=== PATIENT | male | born 1975 | race Caucasian/White ===

== ENCOUNTER 2019-04-11 18:23 | Inpatient (IN) ==
[~2019-04-11 18:23] MED LIST: ETOMIDATE 2 MG/ML 20 ML VIAL IV ONE; ROCURONIUM BROMIDE 10 MG/ML 10 ML VIAL IV ONE
[2019-04-11] MEDS ORDERED: SODIUM CHLORIDE 0.9% 1000ML 1,000 ML IV SCH (18:45)
[2019-04-11 18:47] LABS: Basophils # (auto) 0.05 K/uL (0-0.2); Basophils % (auto) 0.3 %; Eosinophils # (auto) 0.09 K/uL (0-0.5); Eosinophils % (auto) 0.6 %; Hematocrit (blood only) 47.3 % (42-52); Immature Granulocytes # (auto) 0.05 K/uL (0.00-0.02); Immature Granulocytes % (auto) 0.3 %; Lymphocytes # (auto) 3.17 K/uL (1.2-3.4); Lymphocytes % (auto) 21.8 %; Mean Corpuscular Hgb Conc 35.9 g/dL (32-36); Mean Corpuscular Volume 88.2 fL (80-100); Monocytes # (auto) 0.87 K/uL (0.11-0.59); Neutrophils # (auto) 10.28 K/uL (1.4-6.5); Platelet Count 199 K/uL (130-400); RDW Coefficient of Variation 12.3 % (11.5-14.5); Red Blood Count 5.36 M/uL (4.7-6.1); White Blood Count 14.51 K/uL (4.8-10.8)
[2019-04-11 18:55] LABS: iSTAT Creatinine 1.2 mg/dl (0.6-1.3); iSTAT Ionized Calcium 1.12 mmol/l (1.12-1.32); iSTAT Potassium 3.6 mEq/L (3.3-5.0)
[2019-04-11 19:03] LABS: Alanine Aminotransferase 36 U/L (12-78); Albumin Level 4.1 gm/dl (3.4-5.0); Aspartate Aminotransferase 20 U/L (15-37); BUN Creatinine Ratio 12.6 (10-20); Blood Urea Nitrogen 17 mg/dl (7-18); Calcium 8.5 mg/dl (8.5-10.1); Carbon Dioxide 28 mmol/L (21-32); Chloride 107 mmol/L (98-107); Est GFR (African American) 44.9; Est GFR (Non-African American) 38.7; Glucose 134 mg/dl (70-99); Potassium 3.6 mmol/L (3.5-5.1); Prothrombin Time 9.9 Seconds (9.0-12.0); Sodium 142 mmol/L (136-145)
[2019-04-11 19:12] LABS: Acetaminophen < 2 ug/ml (10-30)
[2019-04-11 19:13] LABS: Salicylate < 1.7 mg/dl (2.8-20)
[2019-04-11 19:14] LABS: Alkaline Phosphatase 128 U/L (45-117); Bilirubin,Total 0.6 mg/dl (0.2-1); Globulin 4.1 gm/dl (2.5-4.0); Total Protein 8.2 gm/dl (6.4-8.2); Troponin I < 0.015 ng/ml (0-0.045)
--- NOTE | 2019-04-11 19:18 | XRay Report ---
XR chest 1V portable CLINICAL HISTORY: Possible foreign body ingestion COMPARISON STUDY: No previous studies for comparison. FINDINGS: The cardiac and mediastinal contours are normal. There is no evidence of focal pulmonary co nsolidation. There is no evidence of failure. No pleural effusions are visualized.[ IMPRESSION: No active disease in the chest. Electronically signed by: Bebeto Granda M.D. 04/11/2019 7:17 PM
--- NOTE | 2019-04-11 19:19 | XRay Report ---
XR KUB/Abdomen 1 view CLINICAL HISTORY: Possible foreign body ingestion COMPARISON STUDY: No previous studies for comparison. FINDINGS: There is no pathologic bowel dilatation. No foreign bodies are visualized. There are no justin cifications suspicious for urinary tract calculi. IMPRESSION: Normal bowel gas pattern. Electronically signed by: Bebeto Granda M.D. 04/11/2019 7:17 PM
[2019-04-11] MEDS ORDERED: LORazepam 1 MG/2 ML VIAL IV STA (19:23)
[2019-04-11] MEDS ORDERED: LORazepam 2 MG/4 ML VIAL IV PRN (19:36)
[2019-04-11] MEDS ORDERED: LORazepam 1 ML IM STA ×2 (19:59)
[2019-04-11] MEDS ORDERED: MULTI-VITAMIN INFUSION 10 ML, THIAMINE HCL 100 MG, FOLIC ACID 1 MG in SODIUM CHLORIDE 0... IV SCH (20:00)
[2019-04-11] MEDS ORDERED: LORazepam 2 MG/4 ML VIAL IV STA ×4 (20:08→20:19)
[2019-04-11] MEDS ORDERED: RAPID SEQUENCE INDUCTION BAG ONE (20:30)
[2019-04-11] MEDS ORDERED: PROPOFOL IV EMULSION 10 MG/ML 100 ML VIAL IV ONE (20:44)
[2019-04-11] MEDS ORDERED: PROPOFOL 1,000 MG/100 ML VIAL IV STA (20:59)
[2019-04-11] MEDS ORDERED: ETOMIDATE 2 MG/ML 20 ML VIAL IV STA (20:59)
[2019-04-11] MEDS ORDERED: ROCURONIUM BROMIDE 10 MG/ML 5 ML VIAL IV STA (21:00)
--- NOTE | 2019-04-11 21:10 | XRay Report ---
XR chest 1V portable CLINICAL HISTORY: post intubation RESPIRATORY FAILURE COMPARISON STUDY: 04/11/2019 FINDINGS: There is been interval placement of an endotracheal tube 2 mm above the jarret. There is mi ld interstitial prominence which is likely secondary to expiratory film. There is no lobar consolidat ion. There are no pleural effusions.[ IMPRESSION: Interval placement of an endotracheal tube 2 mm above the jarret. Electronically signed by: Bebeto Granda M.D. 04/11/2019 9:08 PM
--- NOTE | 2019-04-11 21:31 | CT Scan Report ---
CT head/brain wo con CLINICAL HISTORY: Acute change in mental status. Possible drug overdose. COMPARISON STUDY: No previous studies for comparison. TECHNIQUE: Axial CT of the brain is performed from the vertex to the skull base. IV contrast was not administered for this examination. A dose lowering technique was utilized adhering to the principles of ALARA. CT DOSE: 1927.80 mGy.cm FINDINGS: No intra or extra-axial mass lesions are visualized. There is no CT evidence of acute cortical infarc tion. There is no evidence of midline shift. There is no acute hemorrhage. No calvarial fractures ar e visualized. There is no evidence of pathologic ventricular dilatation. There is minimal right frontal sinus mucosal thickening. IMPRESSION: No acute intracranial findings Electronically signed by: Bebeto Granda M.D. 04/11/2019 9:29 PM
--- NOTE | 2019-04-11 21:33 | CT Scan Report ---
CT abd pelvis IV con only CLINICAL HISTORY: Generalized abdominal pain COMPARISON STUDY: None. TECHNIQUE: The patient was scanned in a dynamic helical fashion during intravenous administration of 93 cc of Optiray 320 A dose lowering technique was utilized adhering to the principles of ALARA. CT DOSE: FINDINGS: Lower chest: There is bilateral lower lobe atelectasis/consolidation. Liver: The contrast-enhanced liver is normal in size, contour, and attenuation. There is no intrahepa tic biliary ductal dilatation. The hepatic veins and portal veins are patent. Gallbladder: Unremarkable. Spleen: Normal in size and attenuation. Pancreas: Unremarkable. Adrenal glands: Unremarkable. Kidneys: There is symmetric renal cortical enhancement. The kidneys are normal in size without hydron ephrosis. Bowel: There are no transition zones indicate bowel obstruction. The appendix appears normal. There i s no evidence of acute diverticulitis. Peritoneum: There is no intraperitoneal free air or abdominal ascites. Vasculature: The abdominal aorta is normal in course and caliber. Adenopathy: None. Pelvic viscera: There is a joint Wong catheter. Skeletal structures: No destructive osseous lesions are seen. IMPRESSION: 1. No acute intra-abdominal or pelvic findings 2. No evidence of bowel obstruction. No evidence of free air 3. Normal appendix. No evidence of acute diverticulitis 4. Extensive bilateral lower lobe atelectasis/consolidation Electronically signed by: Bebeto Granda M.D. 04/11/2019 9:32 PM
[2019-04-11] MEDS ORDERED: ICU PROTOCOL FOR HYPERGLYCEMIA PRN (21:37)
--- NOTE | 2019-04-11 21:37 | History & Physical Report ---
Date of Service April 11, 2019 Assessment & Plan (1) Altered mental status: Patient will be admitted to the ICU. Patient is intubated for airway protection. Patient likely overdosed on roney. will continue IV sedation and paralytics. Empiric phenobarbital for presumptive alcohol withdrawal consulted and discussed with habilitation worker. (2) Recreational drug use: Roney use-methamphetamine use likely and MDMA -Treatment as above (3) Tachycardia: Likely secondary to methamphetamine use as well as likely alcohol withdrawal -Avoid beta-blockers -Treating with phenobarbital for alcohol withdrawal (4) DTs (delirium tremens): As above -Phenobarbital (5) Respiratory failure: Secondary to drug intoxication and alcohol withdrawal, -Currently intubated -Continue supplemental O2 to keep pulse ox greater than 90% (6) Drug overdose, intentional: As above (7) HTN (hypertension): Has a history of borderline hypertension but is not on any medication Here severely hypertensive likely secondary to drug use and withdrawal as above (8) History of gonorrhea: Reportedly with history of gonorrhea-unclear if has been treated -Studies pending here (9) Rhabdomyolysis: CPK elevated at 3045 -Likely secondary to drug use and severe agitation -Continue IV fluids -Follow CPK in the morning (10) Leukocytosis: Leukocytosis of 14 on admission -No evidence of infection CT of the head negative, CT of abdomen pelvis negative Chest x-ray negative for pneumonia Urinalysis without evidence of infection -Follow CBC (11) Methamphetamine use: As above (12) DVT prophylaxis: SCDs Pepcid twice daily Lovenox SQ History of Present Illness Primary Care Provider: NO PCP Patient is currently intubated. Unable to obtain medical records at this time. Patient is a young -Citizen Of [place] male who is currently intubated. It appears patient does not have significant past medical history except for Gonorrhea. Patient appears to have some interaction with law enforcement and was intoxicated. EMS was called as he was agitatd, placed on versed and sent to the ER. He became more agitated and began showing signs of respiratory distress whcih caused him to be sedated and intubated. Admision was then called. Allergies Allergy/AdvReac Type Severity Reaction Status Date / Time Penicillins Allergy Unknown Verified 04/11/19 18:38 tomato Allergy Hives Verified 04/13/19 12:02 Home Medications Home Medications Medication Instructions Recorded Confirmed Type Unobtainable 04/11/19 04/11/19 History Past Med/Surg History Medical History HTN (hypertension) (Acute) History of gonorrhea Social History Communication Ability: Unable Current Living Situation: Alone Current Living Situation Comment: Unable to assess - patient intubated and sedated Smoking Status: Unknown if ever smoked Hx Alcohol Use: Yes Alcohol type: other Hx Substance Use: Yes ("Roney") substance use type: methamphetamine Substance Use Type Other:: Unable to assess - patient intubated and sedated Review of Systems Review of Systems: Unobtainable due to endotracheal tube Physical Exam Physical Exam: General: aemrican male who is sedated and intubated. Neurological: RASS score: 4, Psychological: sedated, not following complex commands Eyes: Pupils are equal, round and reactive to light, anicteric sclera. HEENT: MMM, Oropharynx obscured by endotracheal tube. Neck: Supple. Symmetric. trachea midline. No thyromegaly. Cardiovascular: Normal peripheral perfusion. Distal pulses and capillary refill intact. No JVD. Tachycardia Respiratory: Respirations are non-labored, no accessory muscle use. Breath sounds are equal. Gastrointestinal: Soft. Non-distended. Lymphatic: No cervical lymphadenopathy. Musculoskeletal: No deformity. No clubbing nor cyanosis Results & Data Vital Signs (Past 12 Hours) Vital Signs Temp Pulse Resp BP Pulse Ox 04/11/19 21:32 143 H 16 96 04/11/19 20:54 171 H 24 93 04/11/19 20:31 176 H 144/127 H 93 04/11/19 20:30 176 H 93 04/11/19 20:26 176 H 157/123 H 93 04/11/19 20:01 174 H 117/94 91 04/11/19 19:49 169 H 132/87 94 04/11/19 19:30 180 H 132/87 93 04/11/19 19:00 113 H 18 186/104 H 93 04/11/19 18:38 106 H 199/114 H 93 04/11/19 18:30 37.1 C 101 H 18 185/105 H 92 Critical Care Time Critical Care Time: Yes Total Critical Care Time: 32 PG Care Time/CCT Total # of Minutes Spent Total Time Spent with Patient: Total time spent is greater than 50% in coordination of care (as documented) at patient's floor/unit and/or counseling patient: Critical Care Time: Yes Total Critical Care Time: 32 (1) Altered mental status Altered mental status type: unspecified Qualified Code(s): R41.82 - Altered mental status, unspecified
[2019-04-11 22:08] LABS: Appearance Urine Clear (Clear); Bacteria Urine Automated Negative (Negative); Bilirubin Urine Negative (Negative); Blood Urine Trace (Negative); Color Urine Yellow; Epithelial Cell Urine Auto >30 /lpf (0-5); Glucose Urine UA Negative (Negative); Ketones Urine Negative (Negative); Leukocyte Esterase Urine Negative (Negative); Nitrite Urine Negative (Negative); Protein Urine 1+ (Negative); Specific Gravity Urine > 1.045 (1.000-1.030); Urobilinogen Urine Negative (Negative)
--- NOTE | 2019-04-11 22:13 | XRay Report ---
XR chest 1V portable CLINICAL HISTORY: OG tube placement OVERDOSE COMPARISON STUDY: 04/11/2019 FINDINGS: The prior endotracheal tube is not visualized. There is an enteric tube positioned within t he stomach. There is evidence of renal collecting system opacification. IMPRESSION: 1. The recently placed enteric tube is positioned with its tip in the stomach 2. The endotracheal tube is not visualized on the current study Electronically signed by: Bebeto Granda M.D. 04/11/2019 10:12 PM
--- NOTE | 2019-04-11 22:15 | Critical Care Consultation ---
Date of Consultation April 11, 2019 Assessment & Plan (1) Acute metabolic encephalopathy: Reason Critically Ill: Middle-aged -Italian male requiring intubation secondary to acute encephalopathy PLAN: Neuro: Acute encephalopathy -Likely metabolic secondary to recreational drug use versus recreational drug withdrawal -Empiric phenobarbital for presumptive alcohol withdrawal Resp: Acute respiratory failure -Wean ventilator as tolerated CV: Tachycardia -Avoiding beta-blockers secondary to reported "roney" use -Reported roney has high probability of being methamphetamine -Aggressive hydration Fluids/Renal: Checking CPK rule out rhabdomyolysis ID: Monitor fever curve GI/Nutrition: No evidence of transaminitis N.p.o. -OG tube to low intermittent suction Heme: Lovenox DVT prophylaxis Endocrine: ICU hyperglycemia protocol Vascular access: Peripheral IVs Code Status: Full I have personally spent 40 minutes of critical care time in the direct management of this patient. This is a life/limb threatening event. This includes time spent evaluating patient, direct bedside care, chart review, placing orders, interpretation of diagnostic studies, discussion with consultants, patient, and/or family members regarding treatment decisions, as well as other required patient management activities. This time is exclusive of all separately billable procedures, and teaching time and separate from and in addition to any other critical care service time. (2) Drug overdose, intentional: (3) Incarceration: (4) Recreational drug use: (5) Recreational drug withdrawal: (6) Tachycardia: History of Present Illness Reason for Consultation: Intentional drug overdose Requesting Physician: Petra present Attending Physician: Ganesh Payan History of Present Illness Patient is intubated sedated history comes from prior records, Emergency department physician report. Patient is a young -Italian male with reportedly no significant past medical history who presents after being placed in a holding cell after some interaction with law enforcement requiring incarceration, the patient became agitated EMS was called got 5 mg of Versed and was brought to the emergency room for further evaluation. Patient reported taking mollies daily and then experienced increasing agitation and tremulousness requiring multiple doses of Ativan. Upon extensive further questioning after reportedly initially denied reports that he drinks alcohol daily. Ultimately the patient became acutely encephalopathic and required intubation for airway protection and facilitation of medical work-up. Allergies Allergy/AdvReac Type Severity Reaction Status Date / Time Penicillins Allergy Unknown Verified 04/11/19 18:38 Home Medications Home Medications Medication Instructions Recorded Confirmed Type Unobtainable 04/11/19 04/11/19 History Patient History Medical History HTN (hypertension) History of gonorrhea Social History Smoking Status: Unknown if ever smoked Review of Systems Review of Systems: All systems reviewed & are unremarkable except as noted in HPI & below Physical Exam Physical Exam: General: Middle-aged male who appears his stated age, well- nourished I have reviewed the recorded vital signs Neurological: RASS score: 4, Psychological: 3 TP not following complex commands Eyes: Pupils are equal, round and reactive to light, anicteric sclera. Symmetrical lids. HENT: Oropharynx obscured by endotracheal tube, mucous membranes moist. Neck: Supple. Symmetric. trachea midline. No thyromegaly. Cardiovascular: Normal peripheral perfusion. Distal pulses and capillary refill intact. No JVD. Tachycardia Respiratory: Respirations are non-labored, no accessory muscle use. Breath sounds are equal. Gastrointestinal: Soft. Non-distended. Lymphatic: No cervical lymphadenopathy. Musculoskeletal: No deformity. No clubbing nor cyanosis. Results & Data Vital Signs (Past 12 Hours) Vital Signs Temp Pulse Resp BP Pulse Ox 04/11/19 21:32 143 H 16 96 04/11/19 21:30 143 H 153/85 H 95 04/11/19 21:00 160 H 158/93 H 95 04/11/19 20:54 171 H 24 93 04/11/19 20:45 175 H 175/97 H 93 04/11/19 20:31 176 H 144/127 H 93 04/11/19 20:30 176 H 93 04/11/19 20:26 176 H 157/123 H 93 04/11/19 20:01 174 H 117/94 91 04/11/19 19:49 169 H 132/87 94 04/11/19 19:30 180 H 132/87 93 04/11/19 19:00 113 H 18 186/104 H 93 04/11/19 18:38 106 H 199/114 H 93 04/11/19 18:30 37.1 C 101 H 18 185/105 H 92 PG Care Time/CCT Total # of Minutes Spent Total Time Spent with Patient: Total time spent is greater than 50% in coordination of care (as documented) at patient's floor/unit and/or counseling patient: Critical Care Time: Yes Total Critical Care Time: 40
[2019-04-11 22:19] LABS: Mucus Urine Present (None Prsent)
[2019-04-11 22:32] LABS: Amphetamines+Metham, Urine Pos (Neg); Barbiturates, Urine Pos (Neg); Benzodiazepine, Urine Pos (Neg); Cocaine, Urine Neg (Neg); MDMA (Ecstacy), Urine Pos (Neg); Methadone, Urine Neg (Neg); Opiate, Urine Neg (Neg); Phencyclidine, Urine Neg (Neg)
[2019-04-11] MEDS: PROPOFOL 1,000 MG/100 ML VIAL IV SCH ×2 (22:35→23:49)
--- NOTE | 2019-04-12 01:09 | Emergency Department Note ---
Entered by Moriah Loredo acting as a scribe for ThaPetraluis f Petersen DO History of Present Illness General Chief complaint: Overdose (Intentional) Time Seen by Provider: 04/11/19 18:25 Source: patient, EMS and police Mode of arrival: EMS History of Present Illness Onset (ago): hour(s) (1.5) Location: head (Overdose) Severity: similar to prior episodes Pain Consistency: + other (Episode) Quality: + other (Overdose) Relieved By: + medication (Versed) Exacerbated By: + other (Farrah) Associated symptoms: + diaphoresis and + other (Non-verbal.); no chest pain and no headaches Treatments prior to arrival: other (Versed) The patient is a male whose age is unknown presents to the Emergency Department via EMS complaining of an episode of an overdose starting 1.5 hours ago. EMS reports that the patient was arrested by police about 1.5 hours ago. They state that while in his halfway cell the police noticed the patients mental status deteriorated. They explain that upon their arrival the patient was extremely diaphoretic and awake but non-verbal. They note that [employer] the patient resisted coming into the hospital while in the ambulance. They add that they gave the patient Versed 5 mg IM [employer] that seemed to help the patient calm down. The police who are at the patients bedside report that the patient was picked up from [place], [place]. They state that the patient may have swallowed something while he was in the bathroom at their facility because he spent a long time in the bathroom. They explains that the patient was stripped searched and that nothing was found. They note that when the patient arrived at their facility his mental status was normal and that he was answering questions normally. They add that the patient was arrested 2 nights ago and provided a false name to authorities. The patient reports that he was in the ward and took a tablet of Farrah. He states that he has taken Farrah before. He notes that he currently has gonorrhea and hypertension that he does not take medication for. He denies cocaine, heroin and marijuana use. He denies chest pain and headache. The HPI and ROS are limited due to AMS. Home Medications Home Medications Medication Instructions Recorded Confirmed Type Unobtainable 04/11/19 04/11/19 History Allergies Allergy/AdvReac Type Severity Reaction Status Date / Time Penicillins Allergy Unknown Verified 04/11/19 18:38 Past Med/Surg History Medical History HTN (hypertension) History of gonorrhea Social History Communication Ability: Unable Current Living Situation: Alone Current Living Situation Comment: Unable to assess - patient intubated and sedated Smoking Status: Unknown if ever smoked Hx Alcohol Use: Yes Alcohol type: other Hx Substance Use: Yes ("Farrah") substance use type: methamphetamine Substance Use Type Other:: Unable to assess - patient intubated and sedated Review of Systems The HPI and ROS are limited due to AMS. Physical Exam Vital Signs Vital Signs - 24 hr 04/11/19 18:30 04/11/19 18:38 04/11/19 19:00 Temperature 37.1 C Temperature Source Oral Sepsis Recent Fever Within 48 Hours No Sepsis New/Unexplained Change in Mental Status No Sepsis Action Taken by Nursing No Action Required End-Tidal CO2 Pulse Rate 101 H 106 H 113 H Pulse Rate from SpO2 Sensor 103 H 112 H Respiratory Rate 18 18 Blood Pressure 185/105 H 199/114 H 186/104 H Blood Pressure Mean 131 142 131 Pulse Oximetry 92 93 93 Oxygen Delivery Method Room Air Oxygen Flow Rate Fraction of Inspired Oxygen 04/11/19 19:30 04/11/19 19:49 04/11/19 20:01 Temperature Temperature Source Sepsis Recent Fever Within 48 Hours Sepsis New/Unexplained Change in Mental Status Sepsis Action Taken by Nursing End-Tidal CO2 Pulse Rate 180 H 169 H 174 H Pulse Rate from SpO2 Sensor 177 H 173 H 174 H Respiratory Rate Blood Pressure 132/87 132/87 117/94 Blood Pressure Mean 102 102 101 Pulse Oximetry 93 94 91 Oxygen Delivery Method Oxygen Flow Rate 2 4 Fraction of Inspired Oxygen 04/11/19 20:26 04/11/19 20:30 04/11/19 20:31 Temperature Temperature Source Sepsis Recent Fever Within 48 Hours Sepsis New/Unexplained Change in Mental Status Sepsis Action Taken by Nursing End-Tidal CO2 Pulse Rate 176 H 176 H 176 H Pulse Rate from SpO2 Sensor 185 H 174 H 175 H Respiratory Rate Blood Pressure 157/123 H 144/127 H Blood Pressure Mean 134 132 Pulse Oximetry 93 93 93 Oxygen Delivery Method Oxygen Flow Rate Fraction of Inspired Oxygen 04/11/19 20:45 04/11/19 20:54 04/11/19 21:00 Temperature Temperature Source Sepsis Recent Fever Within 48 Hours Sepsis New/Unexplained Change in Mental Status Sepsis Action Taken by Nursing End-Tidal CO2 52 52 Pulse Rate 175 H 171 H 160 H Pulse Rate from SpO2 Sensor 175 H 159 H Respiratory Rate 24 Blood Pressure 175/97 H 158/93 H Blood Pressure Mean 123 114 Pulse Oximetry 93 93 95 Oxygen Delivery Method Oxygen Flow Rate Fraction of Inspired Oxygen 60 04/11/19 21:30 04/11/19 21:32 Temperature Temperature Source Sepsis Recent Fever Within 48 Hours Sepsis New/Unexplained Change in Mental Status Sepsis Action Taken by Nursing End-Tidal CO2 53 46 Pulse Rate 143 H 143 H Pulse Rate from SpO2 Sensor 143 H Respiratory Rate 16 Blood Pressure 153/85 H Blood Pressure Mean 107 Pulse Oximetry 95 96 Oxygen Delivery Method Mechanical Vent Oxygen Flow Rate Fraction of Inspired Oxygen 60 GENERAL: alert, well appearing, well nourished, no distress. EYE EXAM: normal conjunctiva, PERRL and EOM's grossly intact. Dilated pupils b ilaterally. OROPHARYNX: no exudate, no erythema, lips, buccal mucosa, and tongue normal and mucous membranes are moist NECK: supple, no nuchal rigidity, no adenopathy, non-tender LUNGS: Clear to auscultation. Normal chest wall mechanics. No wheezes, rhonchi or rales. HEART: no murmurs, S1 normal and S2 normal ABDOMEN: abdomen soft, non-tender, normo-active bowel sounds, no masses, no rebound or guarding. BACK: Back is symmetrical on inspection and there is no deformity, no midline tenderness, no CVA tenderness. SKIN: no rashes and no bruising UPPER EXTREMITIES: upper extremities are grossly normal. FROM, nml pulses b/l. LOWER EXTREMITIES: No pitting edema. FROM, nml pulses b/l. NEURO EXAM: Patient responds to voice. Eyes open. Will follow simple commands. Slurred speech. Moving all extremities spontaneously. Procedures FAST Exam FAST Exam 1: Fluid in Morison's pouch: No Fluid in Splenorenal Junction: No Fluid around bladder, Transverse view: No Fluid around bladder, Sagittal view: No Fluid in Pericardial Sac: No Gross Wall Motion Abnormality: No Study normal for this patient: Yes Images saved for further review: No Intubation Time out performed: Yes sedative: Etomidate Mg Given: 30 paralytic: Rocuronium Mg Given: 100 Laryngoscope: Viola ET Tube Size: 7.5 ET Tube Uncuffed: No Tube Secured Depth (cm): 25 Tube Secured Location: lips Tube Placement Confirmation: visualized tube passing through cords, equal breath sounds bilaterally, no breath sounds over epigastrium and confirmation by capnometry Patient Tolerated Procedure: well Intubation Complications: none Course 1823: The patient was evaluated in room B1, and a complete history and physical examination were performed. 1850: I reevaluated the patient at this time who is talking more. He reports that he has abdominal pain and has had diarrhea for the past 2 days. He denies any bloody stools. 1919: I reevaluated the patient at this time who is more tachycardic. He is currently trying to urinate. He reports that he normally takes Farrah every day. He states that he is concerned that he has an infection that he got from his dog who has pneumonia. He adds that he does not store drugs in his body. 1934: The nurse reports that she spoke with the patient who said that he normally drinks Nannette every day. She reports that the patient stated he last had an alcoholic drink 1 day ago. 1949: I reevaluated the patient at this time. The patient is more ill-appearing. He is tremulous and tachycardic in the 160s. He confirms that he drinks Nannette every day and that his last drink was 1 day ago. 1999: Bedside FAST exam performed at this time that is negative for free fluid. See procedure note. The patient has had 11 mg of Ativan thus far and is still tachycardic, diaphoretic and tremulous. 2033: I discussed the patients case with Dr. Madrigal. 2042: Etomidate administered at this time. 2043: Rocuronium administered at this time. 2044: I intubated the patient at this time. See procedure note. 2045: The patient was put on a Propofol drip at this time. 2099: CXR reviwed, ETT pulled back 1-2 cm for optimal placement. HR improved but still tachy. BP improved. 2109: I discussed the patient's case with Dr. Gabriella ANDINO hospitalist. He will evaluate the patient for further management. 2132: I reevaluated the patient at this time. The hospitalist is at the patients bedside at this time evaluating the patient. Consultations Consultation #1: I discussed the patients case with Dr. Madrigal. Time: 20:34 Consultation #2: I discussed the patient's case with Dr. Gabriella ANDINO hospitalist. He will evaluate the patient for further management. Time: 21:10 Administered Medications Phenobarbital Sodium 180 mg/ (Syringe) 1.3846 mls @ 0 mls/hr IM Q3H CIERRA Stop: 04/12/19 03:01 Last Admin: 04/11/19 23:44 Dose: 1 mls/hr Documented by: [id number] Propofol (Diprivan) 1,000 mg in 100 mls @ 42.378 mls/hr IV .Q2H22M CIERRA; Protocol Stop: 04/14/19 22:40 Last Admin: 04/11/19 23:49 Dose: 70 mcg/kg/min, 42.4 mls/hr Documented by: [id number] Cosigned by: [id number] Titration: 04/11/19 23:49 Dose: 70 mcg/kg/min, 42.4 mls/hr Documented by: [id number] Cosigned by: [id number] Titration: 04/11/19 23:15 Dose: 70 mcg/kg/min, 42.4 mls/hr Documented by: [id number] Titration: 04/11/19 23:00 Dose: 65 mcg/kg/min, 39.4 mls/hr Documented by: [id number] Admin: 04/11/19 22:35 Dose: 60 mcg/kg/min, 36.3 mls/hr Documented by: [id number] Cosigned by: [id number] Discontinued Medications Etomidate (Amidate) 30 mg IV NOW STA Stop: 04/11/19 21:00 Last Admin: 04/11/19 20:43 Dose: 30 mg Documented by: [id number] Sodium Chloride (Nss 1000ml) 1,000 mls @ 125 mls/hr IV .Q8H CIERRA Stop: 05/11/19 18:44 Last Infusion: 04/11/19 23:37 Dose: 0 mls/hr Documented by: [id number] Admin: 04/11/19 18:48 Dose: 125 mls/hr Documented by: [id number] Lorazepam (Ativan) 1 mg in 2 mls @ 0.5 mls/min IV NOW STA Stop: 04/11/19 19:26 Last Admin: 04/11/19 19:29 Dose: 0.5 mls/min Documented by: [id number] Multivitamins 10 ml/ Thiamine HCl 100 mg/ Folic Acid 1 mg/Sodium Chloride 1,011.2 mls @ 250 mls/hr IV .Q4H3M CIERRA Stop: 04/12/19 00:02 Last Admin: 04/11/19 20:57 Dose: 250 mls/hr Documented by: [id number] Lorazepam (Ativan) 1 mls @ 0.0033 mls/min IM NOW STA Stop: 04/12/19 01:02 Last Admin: 04/11/19 23:36 Dose: Not Given Documented by: [id number] Lorazepam (Ativan) 1 mls @ 0.0033 mls/min IM NOW STA Stop: 04/12/19 01:02 Last Admin: 04/11/19 23:36 Dose: Not Given Documented by: [id number] Lorazepam (Ativan) 2 mg in 4 mls @ 4 mls/min IV NOW STA Stop: 04/11/19 20:09 Last Admin: 04/11/19 20:12 Dose: 4 mls/min Documented by: [id number] Lorazepam (Ativan) 2 mg in 4 mls @ 4 mls/min IV NOW STA Stop: 04/11/19 20:09 Last Admin: 04/11/19 20:12 Dose: 4 mls/min Documented by: [id number] Lorazepam (Ativan) 2 mg in 4 mls @ 4 mls/min IV NOW STA Stop: 04/11/19 20:10 Last Admin: 04/11/19 20:14 Dose: 4 mls/min Documented by: [id number] Lorazepam (Ativan) 2 mg in 4 mls @ 4 mls/min IV NOW STA Stop: 04/11/19 20:20 Last Admin: 04/11/19 20:24 Dose: 4 mls/min Documented by: [id number] Phenobarbital Sodium 240 mg/ (Syringe) 3.6923 mls @ 1 mls/min IV NOW STA Stop: 04/11/19 20:51 Last Admin: 04/11/19 20:57 Dose: 1 mls/min Documented by: [id number] Propofol (Diprivan) 1,000 mg in 100 mls @ 15.135 mls/hr IV .Q6H37M STA; Protocol Stop: 04/12/19 03:35 Last Titration: 04/11/19 23:37 Dose: 0 mcg/kg/min, 0 mls/hr Documented by: [id number] Admin: 04/11/19 20:48 Dose: 25 mcg/kg/min, 15.1 mls/hr Documented by: [id number] Cosigned by: [id number] Propofol (Diprivan) Confirm Administered Dose 1,000 mg IV .STK-MED ONE Stop: 04/11/19 20:45 Last Admin: 04/11/19 20:48 Dose: 1,000 mg Documented by: [id number] Cosigned by: [id number] Rocuronium [place] (Zemuron) 100 mg IV NOW STA Stop: 04/11/19 21:01 Last Admin: 04/11/19 20:43 Dose: 100 mg Documented by: [id number] Cosigned by: [id number] Medical Decision Making Differential Diagnosis Differential diagnoses includes but is not limited to toxic, metabolic, infectious, traumatic, cardiac, neurologic, hematologic, psychiatric, inflammatory, toxicological process,hypoglycemia, electrolyte abnormalities, cardiac sources, intracerebral event as well as others were entertained. Medical Records Attestation: I reviewed the patient's medical records. Home Medications Current Medication List: was personally reviewed by me Laboratory Data Attestation: I reviewed the patient's lab results. Result diagrams: 04/11/19 18:33 04/11/19 18:33 Lab Results 04/11/19 04/11/19 04/11/19 Range/Units 18:33 18:33 18:33 WBC 14.51 H (4.8-10.8) K/uL RBC 5.36 (4.7-6.1) M/uL Hgb 17.0 (14.0-18.0) g/dL POC Hgb (14.0-18.0) g/dl Hct 47.3 (42-52) % POC Hct (42-52) % MCV 88.2 (80-100) fL MCH 31.7 (25-34) pg MCHC 35.9 (32-36) g/dL RDW Std Deviation 39.0 (36.4-46.3) fL RDW Coeff of Galo 12.3 (11.5-14.5) % Plt Count 199 (130-400) K/uL MPV 9.0 (7.4-10.4) fL Immature Gran % (Auto) 0.3 % Neut % (Auto) 71.0 % Lymph % (Auto) 21.8 % Cherry % (Auto) 6.0 % Eos % (Auto) 0.6 % Baso % (Auto) 0.3 % Immature Gran # (Auto) 0.05 H (0.00-0.02) K/uL Neut # (Auto) 10.28 H (1.4-6.5) K/uL Lymph # (Auto) 3.17 (1.2-3.4) K/uL Cherry # (Auto) 0.87 H (0.11-0.59) K/uL Eos # (Auto) 0.09 (0-0.5) K/uL Baso # (Auto) 0.05 (0-0.2) K/uL PT 9.9 (9.0-12.0) Seconds INR 1.0 (0.9-1.1) POC Sodium (135-144) mEq/L Sodium 142 (136-145) mmol/L POC Potassium (3.3-5.0) mEq/L Potassium 3.6 (3.5-5.1) mmol/L POC Chloride (101-112) mEq/L Chloride 107 (98-107) mmol/L Carbon Dioxide 28 (21-32) mmol/L POC Total CO2 (24-31) mEq/l Anion Gap 7.0 (3-11) POC Anion Gap (16-25) mmol/L POC BUN (7-18) mg/dl BUN 17 (7-18) mg/dl Creatinine 1.32 (0.6-1.4) mg/dl POC Creatinine (0.6-1.3) mg/dl Est Cr Clr Drug Dosing Not Reportable Est GFR ( Amer) 44.9 Est GFR (Non-Af Amer) 38.7 BUN/Creatinine Ratio 12.6 (10-20) Glucose 134 H (70-99) mg/dl POC Glucose (other) (70-99) mg/dl Calcium 8.5 (8.5-10.1) mg/dl POC Ioniz Calcium Dinora (1.12-1.32) mmol/l Magnesium 2.0 (1.8-2.4) mg/dl Total Bilirubin 0.6 (0.2-1) mg/dl AST 20 (15-37) U/L ALT 36 (12-78) U/L Alkaline Phosphatase 128 H (45-117) U/L Total Creatine Kinase (39-308) U/L Troponin I < 0.015 (0-0.045) ng/ml Total Protein 8.2 (6.4-8.2) gm/dl Albumin 4.1 (3.4-5.0) gm/dl Globulin 4.1 H (2.5-4.0) gm/dl Albumin/Globulin Ratio 1.0 (0.9-2) Lipase 67 L (73-393) U/L TSH 2.890 (0.300-4.500) uIu/ml Salicylates (2.8-20) mg/dl Acetaminophen (10-30) ug/ml Ethyl Alcohol mg/dL (0-3) mg/dl 04/11/19 04/11/19 04/11/19 Range/Units 18:33 18:33 18:39 WBC (4.8-10.8) K/uL RBC (4.7-6.1) M/uL Hgb (14.0-18.0) g/dL POC Hgb 17.0 (14.0-18.0) g/dl Hct (42-52) % POC Hct 50 (42-52) % MCV (80-100) fL MCH (25-34) pg MCHC (32-36) g/dL RDW Std Deviation (36.4-46.3) fL RDW Coeff of Galo (11.5-14.5) % Plt Count (130-400) K/uL MPV (7.4-10.4) fL Immature Gran % (Auto) % Neut % (Auto) % Lymph % (Auto) % Cherry % (Auto) % Eos % (Auto) % Baso % (Auto) % Immature Gran # (Auto) (0.00-0.02) K/uL Neut # (Auto) (1.4-6.5) K/uL Lymph # (Auto) (1.2-3.4) K/uL Cherry # (Auto) (0.11-0.59) K/uL Eos # (Auto) (0-0.5) K/uL Baso # (Auto) (0-0.2) K/uL PT (9.0-12.0) Seconds INR (0.9-1.1) POC Sodium 144 (135-144) mEq/L Sodium (136-145) mmol/L POC Potassium 3.6 (3.3-5.0) mEq/L Potassium (3.5-5.1) mmol/L POC Chloride 104 (101-112) mEq/L Chloride (98-107) mmol/L Carbon Dioxide (21-32) mmol/L POC Total CO2 26 (24-31) mEq/l Anion Gap (3-11) POC Anion Gap 19.0 (16-25) mmol/L POC BUN 17 (7-18) mg/dl BUN (7-18) mg/dl Creatinine (0.6-1.4) mg/dl POC Creatinine 1.2 (0.6-1.3) mg/dl Est Cr Clr Drug Dosing Est GFR ( Amer) Est GFR (Non-Af Amer) BUN/Creatinine Ratio (10-20) Glucose (70-99) mg/dl POC Glucose (other) 139 H (70-99) mg/dl Calcium (8.5-10.1) mg/dl POC Ioniz Calcium Dinora 1.12 (1.12-1.32) mmol/l Magnesium (1.8-2.4) mg/dl Total Bilirubin (0.2-1) mg/dl AST (15-37) U/L ALT (12-78) U/L Alkaline Phosphatase (45-117) U/L Total Creatine Kinase 211 (39-308) U/L Troponin I (0-0.045) ng/ml Total Protein (6.4-8.2) gm/dl Albumin (3.4-5.0) gm/dl Globulin (2.5-4.0) gm/dl Albumin/Globulin Ratio (0.9-2) Lipase (73-393) U/L TSH (0.300-4.500) uIu/ml Salicylates < 1.7 L (2.8-20) mg/dl Acetaminophen < 2 L (10-30) ug/ml Ethyl Alcohol mg/dL (0-3) mg/dl 04/11/19 Range/Units 18:50 WBC (4.8-10.8) K/uL RBC (4.7-6.1) M/uL Hgb (14.0-18.0) g/dL POC Hgb (14.0-18.0) g/dl Hct (42-52) % POC Hct (42-52) % MCV (80-100) fL MCH (25-34) pg MCHC (32-36) g/dL RDW Std Deviation (36.4-46.3) fL RDW Coeff of Galo (11.5-14.5) % Plt Count (130-400) K/uL MPV (7.4-10.4) fL Immature Gran % (Auto) % Neut % (Auto) % Lymph % (Auto) % Cherry % (Auto) % Eos % (Auto) % Baso % (Auto) % Immature Gran # (Auto) (0.00-0.02) K/uL Neut # (Auto) (1.4-6.5) K/uL Lymph # (Auto) (1.2-3.4) K/uL Cherry # (Auto) (0.11-0.59) K/uL Eos # (Auto) (0-0.5) K/uL Baso # (Auto) (0-0.2) K/uL PT (9.0-12.0) Seconds INR (0.9-1.1) POC Sodium (135-144) mEq/L Sodium (136-145) mmol/L POC Potassium (3.3-5.0) mEq/L Potassium (3.5-5.1) mmol/L POC Chloride (101-112) mEq/L Chloride (98-107) mmol/L Carbon Dioxide (21-32) mmol/L POC Total CO2 (24-31) mEq/l Anion Gap (3-11) POC Anion Gap (16-25) mmol/L POC BUN (7-18) mg/dl BUN (7-18) mg/dl Creatinine (0.6-1.4) mg/dl POC Creatinine (0.6-1.3) mg/dl Est Cr Clr Drug Dosing Est GFR ( Amer) Est GFR (Non-Af Amer) BUN/Creatinine Ratio (10-20) Glucose (70-99) mg/dl POC Glucose (other) (70-99) mg/dl Calcium (8.5-10.1) mg/dl POC Ioniz Calcium Dinora (1.12-1.32) mmol/l Magnesium (1.8-2.4) mg/dl Total Bilirubin (0.2-1) mg/dl AST (15-37) U/L ALT (12-78) U/L Alkaline Phosphatase (45-117) U/L Total Creatine Kinase (39-308) U/L Troponin I (0-0.045) ng/ml Total Protein (6.4-8.2) gm/dl Albumin (3.4-5.0) gm/dl Globulin (2.5-4.0) gm/dl Albumin/Globulin Ratio (0.9-2) Lipase (73-393) U/L TSH (0.300-4.500) uIu/ml Salicylates (2.8-20) mg/dl Acetaminophen (10-30) ug/ml Ethyl Alcohol mg/dL < 3.0 (0-3) mg/dl Imaging Data Radiologist's Impression: Radiology results as stated below per my review and the radiologist's interpretation: CT head/brain wo con CLINICAL HISTORY: Acute change in mental status. Possible drug overdose. COMPARISON STUDY: No previous studies for comparison. TECHNIQUE: Axial CT of the brain is performed from the vertex to the skull base. IV contrast was not administered for this examination. A dose lowering technique was utilized adhering to the principles of ALARA. CT DOSE: 1927.80 mGy.cm FINDINGS: No intra or extra-axial mass lesions are visualized. There is no CT evidence of acute cortical infarction. There is no evidence of midline shift. There is no acute hemorrhage. No calvarial fractures are visualized. There is no evidence of pathologic ventricular dilatation. There is minimal right frontal sinus mucosal thickening. IMPRESSION: No acute intracranial findings Electronically signed by: Bebeto Granda M.D. 04/11/2019 9:[address] abd pelvis IV con only CLINICAL HISTORY: Generalized abdominal pain COMPARISON STUDY: None. TECHNIQUE: The patient was scanned in a dynamic helical fashion during intravenous administration of 93 cc of Optiray 320 A dose lowering technique was utilized adhering to the principles of ALARA. CT DOSE: FINDINGS: Lower chest: There is bilateral lower lobe atelectasis/consolidation. Liver: The contrast-enhanced liver is normal in size, contour, and attenuation. There is no intrahepatic biliary ductal dilatation. The hepatic veins and portal veins are patent. Gallbladder: Unremarkable. Spleen: Normal in size and attenuation. Pancreas: Unremarkable. Adrenal glands: Unremarkable. Kidneys: There is symmetric renal cortical enhancement. The kidneys are normal in size without hydronephrosis. Bowel: There are no transition zones indicate bowel obstruction. The appendix appears normal. There is no evidence of acute diverticulitis. Peritoneum: There is no intraperitoneal free air or abdominal ascites. Vasculature: The abdominal aorta is normal in course and caliber. Adenopathy: None. Pelvic viscera: There is a joint Wong catheter. Skeletal structures: No destructive osseous lesions are seen. IMPRESSION: 1. No acute intra-abdominal or pelvic findings 2. No evidence of bowel obstruction. No evidence of free air 3. Normal appendix. No evidence of acute diverticulitis 4. Extensive bilateral lower lobe atelectasis/consolidation Electronically signed by: Bebeto Granda M.D. 04/11/2019 9:32 PM XR chest 1V portable CLINICAL HISTORY: Possible foreign body ingestion COMPARISON STUDY: No previous studies for comparison. FINDINGS: The cardiac and mediastinal contours are normal. There is no evidence of focal pulmonary consolidation. There is no evidence of failure. No pleural effusions are visualized.[ IMPRESSION: No active disease in the chest. Electronically signed by: Bebeto Granda M.D. 04/11/2019 7:17 PM XR chest 1V portable CLINICAL HISTORY: post intubation RESPIRATORY FAILURE COMPARISON STUDY: 04/11/2019 FINDINGS: There is been interval placement of an endotracheal tube 2 mm above the jarret. There is mild interstitial prominence which is likely secondary to expiratory film. There is no lobar consolidation. There are no pleural effusions.[ IMPRESSION: Interval placement of an endotracheal tube 2 mm above the jarret. Electronically signed by: Bebeto Granda M.D. 04/11/2019 9:08 PM XR chest 1V portable CLINICAL HISTORY: OG tube placement OVERDOSE COMPARISON STUDY: 04/11/2019 FINDINGS: The prior endotracheal tube is not visualized. There is an enteric tube positioned within the stomach. There is evidence of renal collecting system opacification. IMPRESSION: 1. The recently placed enteric tube is positioned with its tip in the stomach 2. The endotracheal tube is not visualized on the current study Electronically signed by: Bebeto Granda M.D. 04/11/2019 10:12 PM XR KUB/Abdomen 1 view CLINICAL HISTORY: Possible foreign body ingestion COMPARISON STUDY: No previous studies for comparison. FINDINGS: There is no pathologic bowel dilatation. No foreign bodies are vi sualized. There are no calcifications suspicious for urinary tract calculi. IMPRESSION: Normal bowel gas pattern. Electronically signed by: Bebeto Granda M.D. 04/11/2019 7:17 PM ECG Data Attestation: I personally reviewed and interpreted this ECG as follows: Indication: altered mental status Rate (beats per minute): 104 Rhythm: sinus tachycardia Findings: + other (Normal intervals.) and + left axis deviation; no acute ischemic change Blood Pressure Blood Pressure Findings: Elevated blood pressure Blood Pressure Disposition: further management by hospitalist SARAH Narrative This was a comp gated presentation given patient given Versed IM by EMS after becoming agitated when they were initially dispatched for an unresponsive episode while patient was on holding [facility]. Their Accu- Chek was 110, and patient was unable to provide history. Patient was improved here on arrival, calm and cooperative, heart rate was a sinus rhythm at 99, although patient hypertensive. While performing an evaluation, drawing labs and starting an IV, patient admitted to using the recreational drug "Farrah". Patient denied any pain or discomfort initially. As patient's cooperation and mentation began to improve, more more information was available with each subsequent recheck in bedside discussion. Patient eventually admitted to using recreational drugs daily, and with additional time admitted to drinking alcohol daily, although his last drink was yesterday. Patient's initial labs are reassuring, chest x-ray and KUB unremarkable. Patient denied any other coingestions today. Patient's heart rate then became more and more elevated, blood pressure continued to rise, patient became more diaphoretic, tremulous and agitated in appearance. We began giving the patient Ativan IV in the hopes of calming him down and controlling the tachycardia and tremors given concern for evolving alcohol withdrawal or other coingestion but the patient had not reported to us. No other signs or symptoms of anticholinergic toxicity or serotonin syndrome. Patient was mildly tachypneic, however denied any shortness of breath, had no other difficulty breathing and oxygen saturations continue to be in the 90s. Pt then began to appear slightly altered or responding to internal stimuli. Despite continued doses of Ativan, patient's condition continued to deteriorate. Given the elevated suspicion for evolving DTs, I consulted the director clinical pharmacology and discussed with them over the phone the patient's current condition and use of additional IV drips and likely need for an ICU admission. After this phone consultation, patient's condition continued to deteriorate and he became more sonorous, drooling, and was no longer responding to verbal stimuli. Patient was intubated for airway protection and altered mental status in the setting of likely evolving delirium tremens. Following intubation patient was started on a propofol drip and started on phenobarbital to help control his withdrawal symptoms. Patient's vital signs did improve although he continued to be tachycardic. Patient had IV fluids as well as an IV banana bag running during this entire time. Once control of the patient's airway was obtained and vital signs were improved, patient sent to CT imaging. This did not reveal any additional new pathology. Case was discussed with the hospitalist who is in agreement with the plan and also discussed case with the director clinical pharmacology as well. I do not suspect occult traumatic injury or bacteremia/sepsis. Patient's tachycardia was a sinus rhythm on monitor, no other dysrhythmia noted. No other evidence of acute neurologic process contributing to altered mentation. I do not suspect hypertensive emergency or hypertensive encephalopathy. Impression & Plan Altered mental status, Tachycardia, DTs (delirium tremens), Respiratory failure, HTN (hypertension), Recreational drug use Critical Care Time Critical Care Time: Yes Total Critical Care Time: 90 I have personally spent 90 minutes of critical care time in the direct management of this patient. This includes bedside care, interpretation of diagnostic studies, and testing, discussion with consultants, patient, and family members, and other required patient management activities. This 90 minutes is in excess of all separately billable procedures. Discharge Plan Visit Data *Final* Discharge Date/Time: 04/11/19 22:45 Chief Complaint: Overdose (Intentional) ED Provider: Petra Almazan Discharge Problem: Altered mental status, Tachycardia, DTs (delirium tremens), Respiratory failure, HTN (hypertension), Recreational drug use Patient Disposition: Admitted As Inpatient Discharge Instructions Interventions: ED Discharge Assessment Last Done: 04/11/19 22:45 Discharge Problem: Altered mental status Qualifiers: Altered mental status type: unspecified Qualified Code(s): R41.82 - Altered mental status, unspecified Respiratory failure Qualifiers: Chronicity: acute Respiratory failure complication: unspecified whether with hypoxia or hypercapnia Qualified Code(s): J96.00 - Acute respiratory failure, unspecified whether with hypoxia or hypercapnia HTN (hypertension) Qualifiers: Hypertension type: essential hypertension Qualified Code(s): I10 - Essential (primary) hypertension The scribe's documentation has been prepared under my direction and personally reviewed by me in its entirety. I confirm that the note above accurately reflects all work, treatment, procedures, and medical decision making performed by me.
[2019-04-12] MEDS: NORMOSOL-R 1,000 ML IV SCH ×3 (01:37→15:37)
[2019-04-12] MEDS: PROPOFOL 1,000 MG/100 ML VIAL IV SCH ×4 (02:22→09:16)
[2019-04-12 06:28] LABS: Basophils # (auto) 0.02 K/uL (0-0.2); Basophils % (auto) 0.2 %; Eosinophils # (auto) 0.01 K/uL (0-0.5); Eosinophils % (auto) 0.1 %; Hemoglobin 15.1 g/dL (14.0-18.0); Immature Granulocytes # (auto) 0.04 K/uL (0.00-0.02); Immature Granulocytes % (auto) 0.3 %; Lymphocytes # (auto) 2.16 K/uL (1.2-3.4); Lymphocytes % (auto) 18.7 %; Mean Corpuscular Volume 90.3 fL (80-100); Mean Platelet Volume 9.7 fL (7.4-10.4); Monocytes # (auto) 1.32 K/uL (0.11-0.59); Monocytes % (auto) 11.4 %; Neutrophils # (auto) 7.99 K/uL (1.4-6.5); Neutrophils % (auto) 69.3 %; Platelet Count 177 K/uL (130-400); RDW Coefficient of Variation 12.6 % (11.5-14.5); RDW Standard Deviation 41.2 fL (36.4-46.3); Red Blood Count 4.87 M/uL (4.7-6.1); White Blood Count 11.54 K/uL (4.8-10.8)
[2019-04-12 06:35] LABS: Albumin Level 3.6 gm/dl (3.4-5.0); BUN Creatinine Ratio 10.6 (10-20); Bilirubin Direct 0.2 mg/dl (0-0.2); Calcium 7.9 mg/dl (8.5-10.1); Creatinine Clr Calc Pharmacy 100.1 ml/min; Est GFR (African American) 89.2; Magnesium 2.3 mg/dl (1.8-2.4); Potassium 3.6 mmol/L (3.5-5.1)
[2019-04-12 06:36] LABS: Mean Corpuscular Hgb Conc 34.3 g/dL (32-36)
[2019-04-12 06:38] LABS: Bilirubin,Total 0.9 mg/dl (0.2-1); Phosphorus 3.2 mg/dl (2.5-4.9); Total Protein 7.2 gm/dl (6.4-8.2)
[2019-04-12] MEDS: PHENobarbital 32.4 MG TAB PO SCH ×2 (08:03→20:40)
[2019-04-12] MEDS: FAMOTIDINE 20 MG in SYRINGE 3 ML IV SCH ×2 (09:16→20:40)
[2019-04-12] MEDS: ENOXAPARIN INJ 40 MG/0.4 ML SYR SQ SCH (09:16)
--- NOTE | 2019-04-12 09:22 | Critical Care Progress Note ---
Date of Service April 12, 2019 Assessment & Plan (1) Acute metabolic encephalopathy: Reason Critically Ill: Middle-aged -[place] male requiring intubation secondary to acute encephalopathy PLAN: Neuro: Acute encephalopathy -Likely metabolic secondary to recreational drug use versus recreational drug withdrawal -Empiric phenobarbital for presumptive alcohol withdrawal Resp: Acute respiratory failure -Sedation paused and weaning ventilator as tolerated -Currently on SIMV 10/500/5/40 percent CV: Tachycardia -Avoiding beta-blockers secondary to reported "farrah" use -Reported farrah has high probability of being methamphetamine -Monitoring on telemetry -Continue Normosol 125 mL/h Fluids/Renal: Rhabdomyolysislikely secondary to amphetamine overdose -We will trend CPK and continue IV fluid resuscitation -Monitor urinary output ID: No indication for infectious process at this time GI/Nutrition: No evidence of transaminitis N.p.o. -OG tube to low intermittent suction Heme: Lovenox DVT prophylaxis Endocrine: ICU hyperglycemia protocol Vascular access: Peripheral IVs Code Status: Full I have personally spent 35 minutes of critical care time in the direct management of this patient. This is a life/limb threatening event. This includes time spent evaluating patient, direct bedside care, chart review, placing orders, interpretation of diagnostic studies, discussion with consultants, patient, and/or family members regarding treatment decisions, as well as other required patient management activities. This time is exclusive of all separately billable procedures, and teaching time and separate from and in addition to any other critical care service time. Thank you for allowing us to participate in the care of this patient. Please refer to my attending physician's documentation for any further recommendations. (2) Drug overdose, intentional: (3) Incarceration: (4) Recreational drug use: (5) Recreational drug withdrawal: (6) Tachycardia: Supervising Physician Co-Signing Physician Notes I have personally evaluated and examined this patient. I agree with assessment and plan of Ryan REHMAN. Patient became more responsive admitted to using Farrah and drinking alcohol. He also reported having withdraws including a seizure. We will continue phenobarbital at this time. He still has a toxidrome consistent with possible methamphetamine use. At this time we will avoid beta-blockers. His hepatitis C and B antibodies are negative, this was checked given both reports of drug use as well as STIs. I believe the STI has been treated however we are sending RNA probes for additional work-up. Patient much later this afternoon was following complex commands and on minimal vent settings so he was successfully extubated. Subjective Patient remains intubated and sedated at this time. We are currently weaning sedation in hopes to extubate the patient this afternoon, however he is proving slow to arouse. Patient has remained hemodynamically stable without need for pressors. Will remain in ICU for now for ventilator management. Review of Systems Review of Systems: Unobtainable due to endotracheal tube and Unobtainable due to reduced consciousness Physical Exam Eyes: PERRL, conjunctivae normal, anicteric sclerae ENMT: external ear and nose normal, oropharynx normal Neck: trachea midline, no thyromegaly Respiratory: symmetric chest movement Auscultation: lungs clear to auscultation bilaterally Cardiovascular: Rate/Rhythm: regular rate and + tachycardic Heart Sounds: normal S1 and normal S2 Vessels: no JVD Extremities: normal capillary refill; no edema Gastrointestinal (Abdomen): normal bowel sounds, soft, nontender, no hepatosplenomegaly Skin: no rashes, warm and dry Neurologic: Unable to assess secondary to sedation Psychiatric: Unable to assess secondary to sedation Genitourinary: Indwelling Wong catheter present Results & Data Vital Signs (Past 12 Hours) Vital Signs Temp Pulse Pulse Resp BP BP Pulse Ox 04/12/19 08:00 37.2 C 04/12/19 07:33 110 H 18 94 04/12/19 07:31 112 H 144/89 H 93 04/12/19 07:01 108 H 157/94 H 96 04/12/19 06:39 37.0 C 04/12/19 06:31 108 H 160/92 H 96 04/12/19 06:01 108 H 158/94 H 96 04/12/19 05:31 110 H 157/97 H 96 04/12/19 05:24 110 H 18 96 04/12/19 05:01 110 H 154/98 H 96 04/12/19 04:31 109 H 161/96 H 91 04/12/19 04:01 37.5 C 111 H 162/94 H 97 04/12/19 03:31 112 H 160/97 H 97 04/12/19 03:01 113 H 156/95 H 97 04/12/19 02:31 113 H 151/89 H 96 04/12/19 02:10 116 H 18 97 08/16/19 02:01 115 H 141/88 H 97 04/12/19 01:31 117 H 148/89 H 96 04/12/19 01:01 119 H 145/81 H 97 04/12/19 00:31 120 H 142/85 H 97 04/12/19 00:01 37.3 C 122 H 129/89 96 04/11/19 23:31 124 H 147/89 H 96 04/11/19 23:01 127 H 153/84 H 94 04/11/19 22:42 129 H 04/11/19 22:35 37.2 C 127 H 19 148/85 H 96 04/11/19 22:30 114 H 18 98 04/11/19 22:15 134 H 160/101 H 96 04/11/19 22:00 135 H 158/94 H 96 04/11/19 21:45 138 H 146/91 H 94 04/11/19 21:32 143 H 16 96 04/11/19 21:30 143 H 153/85 H 95 Laboratory Results Laboratory Results - last 24 hr 04/11/19 04/11/19 04/11/19 18:33 18:33 18:33 WBC 14.51 H RBC 5.36 Hgb 17.0 POC Hgb Hct 47.3 POC Hct MCV 88.2 MCH 31.7 MCHC 35.9 RDW Std Deviation 39.0 RDW Coeff of Galo 12.3 Plt Count 199 MPV 9.0 Immature Gran % (Auto) 0.3 Neut % (Auto) 71.0 Lymph % (Auto) 21.8 [place] % (Auto) 6.0 Eos % (Auto) 0.6 Baso % (Auto) 0.3 Immature Gran # (Auto) 0.05 H Neut # (Auto) 10.28 H Lymph # (Auto) 3.17 [place] # (Auto) 0.87 H Eos # (Auto) 0.09 Baso # (Auto) 0.05 PT 9.9 INR 1.0 POC Sodium Sodium 142 POC Potassium Potassium 3.6 POC Chloride Chloride 107 Carbon Dioxide 28 POC Total CO2 Anion Gap 7.0 POC Anion Gap POC BUN BUN 17 Creatinine 1.32 POC Creatinine Est Cr Clr Drug Dosing Not Reportable Est GFR ( Amer) 44.9 Est GFR (Non-Af Amer) 38.7 BUN/Creatinine Ratio 12.6 Glucose 134 H POC Glucose POC Glucose (other) Lactate Calcium 8.5 POC Ioniz Calcium Dinora Ionized Calcium Phosphorus Magnesium 2.0 Total Bilirubin 0.6 Direct Bilirubin AST 20 ALT 36 Alkaline Phosphatase 128 H Total Creatine Kinase Troponin I < 0.015 Total Protein 8.2 Albumin 4.1 Globulin 4.1 H Albumin/Globulin Ratio 1.0 Lipase 67 L TSH 2.890 Urine Color Urine Appearance Urine pH Ur Specific [place] Urine Protein Urine Glucose (UA) Urine Ketones Urine Blood Urine Nitrite Urine Bilirubin Urine Urobilinogen Ur Leukocyte Esterase Urine WBC (Auto) Urine RBC (Auto) U Hyaline Cast (Auto) U Epithel Cells (Auto) Urine Bacteria (Auto) Ur Renal Epithelial Cell Urine Mucus Nasal Screen MRSA (PCR) Urine Butalbital Salicylates Urine Opiates Screen Ur Methadone, Qual Acetaminophen Urine Barbiturates Ur Phencyclidine (PCP) U Amphetamines Confirm U Amphetamin/Meth Scrn U Methamphetamin Confrm MDMA (Ecstasy) Screen U MDMA (Ecstasy), Quant Urine Amobarbital Urine Pentobarbital Urine Phenobarbital Urine Secobarbital U OH-Alprazolam Confrm U Benzodiazepines Scrn 7-Amino Clonazepam Ur Nordiazepam Confirm U OH-ethylflurazepam U Lorazepam Cnf GC/MS U Oxazepam Confm GC/MS Ur Temazepam Confirm U OH-Triazolam Confirm U OH-Midazolam Confirm Ur Cocaine Metabolite U Marijuana (THC) Screen Ethyl Alcohol mg/dL C.trachomatis RNA Hepatitis A IgM Ab Hep Bs Antigen Hep B Core IgM Ab Hepatitis C Antibody N.gonorrhoeae RNA 04/11/19 04/11/19 04/11/19 18:33 18:33 18:39 WBC RBC Hgb POC Hgb 17.0 Hct POC Hct 50 MCV MCH MCHC RDW Std Deviation RDW Coeff of Gal[place] Plt Count MPV Immature Gran % (Auto) Neut % (Auto) Lymph % (Auto) [place] % (Auto) Eos % (Auto) Baso % (Auto) Immature Gran # (Auto) Neut # (Auto) Lymph # (Auto) [place] # (Auto) Eos # (Auto) Baso # (Auto) PT INR POC Sodium 144 Sodium POC Potassium 3.6 Potassium POC Chloride 104 Chloride Carbon Dioxide POC Total CO2 26 Anion Gap POC Anion Gap 19.0 POC BUN 17 BUN Creatinine POC Creatinine 1.2 Est Cr Clr Drug Dosing Est GFR ( Amer) Est GFR (Non-Af Amer) BUN/Creatinine Ratio Glucose POC Glucose POC Glucose (other) 139 H Lactate Calcium POC Ioniz Calcium Dinora 1.12 Ionized Calcium Phosphorus Magnesium Total Bilirubin Direct Bilirubin AST ALT Alkaline Phosphatase Total Creatine Kinase 211 Troponin I Total Protein Albumin Globulin Albumin/Globulin Ratio Lipase TSH Urine Color Urine Appearance Urine pH Ur Specific [place] Urine Protein Urine Glucose (UA) Urine Ketones Urine Blood Urine Nitrite Urine Bilirubin Urine Urobilinogen Ur Leukocyte Esterase Urine WBC (Auto) Urine RBC (Auto) U Hyaline Cast (Auto) U Epithel Cells (Auto) Urine Bacteria (Auto) Ur Renal Epithelial Cell Urine Mucus Nasal Screen MRSA (PCR) Urine Butalbital Salicylates < 1.7 L Urine Opiates Screen Ur Methadone, Qual Acetaminophen < 2 L Urine Barbiturates Ur Phencyclidine (PCP) U Amphetamines Confirm U Amphetamin/Meth Scrn U Methamphetamin Confrm MDMA (Ecstasy) Screen U MDMA (Ecstasy), Quant Urine Amobarbital Urine Pentobarbital Urine Phenobarbital Urine Secobarbital U OH-Alprazolam Confrm U Benzodiazepines Scrn 7-Amino Clonazepam Ur Nordiazepam Confirm U OH-ethylflurazepam U Lorazepam Cnf GC/MS U Oxazepam Confm GC/MS Ur Temazepam Confirm U OH-Triazolam Confirm U OH-Midazolam Confirm Ur Cocaine Metabolite U Marijuana (THC) Screen Ethyl Alcohol mg/dL C.trachomatis RNA Hepatitis A IgM Ab Hep Bs Antigen Hep B Core IgM Ab Hepatitis C Antibody N.gonorrhoeae RNA 04/11/19 04/11/19 04/11/19 18:50 21:55 21:55 WBC RBC Hgb POC Hgb Hct POC Hct MCV MCH MCHC RDW Std Deviation RDW Coeff of Galo Plt Count MPV Immature Gran % (Auto) Neut % (Auto) Lymph % (Auto) [place] % (Auto) Eos % (Auto) Baso % (Auto) Immature Gran # (Auto) Neut # (Auto) Lymph # (Auto) [place] # (Auto) Eos # (Auto) Baso # (Auto) PT INR POC Sodium Sodium POC Potassium Potassium POC Chloride Chloride Carbon Dioxide POC Total CO2 Anion Gap POC Anion Gap POC BUN BUN Creatinine POC Creatinine Est Cr Clr Drug Dosing Est GFR ( Amer) Est GFR (Non-Af Amer) BUN/Creatinine Ratio Glucose POC Glucose POC Glucose (other) Lactate Calcium POC Ioniz Calcium Dinora Ionized Calcium Phosphorus Magnesium Total Bilirubin Direct Bilirubin AST ALT Alkaline Phosphatase Total Creatine Kinase Troponin I Total Protein Albumin Globulin Albumin/Globulin Ratio Lipase TSH Urine Color Yellow Urine Appearance Clear Urine pH 5.0 Ur Specific [place] > 1.045 H Urine Protein 1+ H Urine Glucose (UA) Negative Urine Ketones Negative Urine Blood Trace H Urine Nitrite Negative Urine Bilirubin Negative Urine Urobilinogen Negative Ur Leukocyte Esterase Negative Urine WBC (Auto) 1-5 Urine RBC (Auto) 5-10 H U Hyaline Cast (Auto) 1-5 U Epithel Cells (Auto) >30 H Urine Bacteria (Auto) Negative Ur Renal Epithelial Cell Not Reportable Urine Mucus Present A Nasal Screen MRSA (PCR) Urine Butalbital Salicylates Urine Opiates Screen Neg Ur Methadone, Qual Neg Acetaminophen Urine Barbiturates Pos H Ur Phencyclidine (PCP) Neg U Amphetamines Confirm U Amphetamin/Meth Scrn Pos H U Methamphetamin Confrm MDMA (Ecstasy) Screen Pos H U MDMA (Ecstasy), Quant Urine Amobarbital Urine Pentobarbital Urine Phenobarbital Urine Secobarbital U OH-Alprazolam Confrm U Benzodiazepines Scrn Pos H 7-Amino Clonazepam Ur Nordiazepam Confirm U OH-ethylflurazepam U Lorazepam Cnf GC/MS U Oxazepam Confm GC/MS Ur Temazepam Confirm U OH-Triazolam Confirm U OH-Midazolam Confirm Ur Cocaine Metabolite Neg U Marijuana (THC) Screen Neg Ethyl Alcohol mg/dL < 3.0 C.trachomatis RNA Hepatitis A IgM Ab Hep Bs Antigen Hep B Core IgM Ab Hepatitis C Antibody N.gonorrhoeae RNA 04/11/19 04/11/19 04/11/19 21:55 21:55 22:57 WBC RBC Hgb POC Hgb Hct POC Hct MCV MCH MCHC RDW Std Deviation RDW Coeff of [place] Plt Count MPV Immature Gran % (Auto) Neut % (Auto) Lymph % (Auto) [place] % (Auto) Eos % (Auto) Baso % (Auto) Immature Gran # (Auto) Neut # (Auto) Lymph # (Auto) [place] # (Auto) Eos # (Auto) Baso # (Auto) PT INR POC Sodium Sodium POC Potassium Potassium POC Chloride Chloride Carbon Dioxide POC Total CO2 Anion Gap POC Anion Gap POC BUN BUN Creatinine POC Creatinine Est Cr Clr Drug Dosing Est GFR ( Amer) Est GFR (Non-Af Amer) BUN/Creatinine Ratio Glucose POC Glucose POC Glucose (other) Lactate Calcium POC Ioniz Calcium Dinora Ionized Calcium Phosphorus Magnesium Total Bilirubin Direct Bilirubin AST ALT Alkaline Phosphatase Total Creatine Kinase Troponin I Total Protein Albumin Globulin Albumin/Globulin Ratio Lipase TSH Urine Color Urine Appearance Urine pH Ur Specific [place] Urine Protein Urine Glucose (UA) Urine Ketones Urine Blood Urine Nitrite Urine Bilirubin Urine Urobilinogen Ur Leukocyte Esterase Urine WBC (Auto) Urine RBC (Auto) U Hyaline Cast (Auto) U Epithel Cells (Auto) Urine Bacteria (Auto) Ur Renal Epithelial Cell Urine Mucus Nasal Screen MRSA (PCR) Negative Urine Butalbital Pending Salicylates Urine Opiates Screen Ur Methadone, Qual Acetaminophen Urine Barbiturates Ur Phencyclidine (PCP) U Amphetamines Confirm Pending U Amphetamin/Meth Scrn U Methamphetamin Confrm Pending MDMA (Ecstasy) Screen U MDMA (Ecstasy), Quant Pending Urine Amobarbital Pending Urine Pentobarbital Pending Urine Phenobarbital Pending Urine Secobarbital Pending U OH-Alprazolam Confrm Pending U Benzodiazepines Scrn 7-Amino Clonazepam Pending Ur Nordiazepam Confirm Pending U OH-ethylflurazepam Pending U Lorazepam Cnf GC/MS Pending U Oxazepam Confm GC/MS Pending Ur Temazepam Confirm Pending U OH-Triazolam Confirm Pending U OH-Midazolam Confirm Pending Ur Cocaine Metabolite U Marijuana (THC) Screen Ethyl Alcohol mg/dL C.trachomatis RNA Hepatitis A IgM Ab Hep Bs Antigen Hep B Core IgM Ab Hepatitis C Antibody N.gonorrhoeae RNA 04/11/19 04/12/19 04/12/19 23:19 00:25 04:37 WBC RBC Hgb POC Hgb Hct POC Hct MCV MCH MCHC RDW Std Deviation RDW Coeff of [place] Plt Count MPV Immature Gran % (Auto) Neut % (Auto) Lymph % (Auto) [place] % (Auto) Eos % (Auto) Baso % (Auto) Immature Gran # (Auto) Neut # (Auto) Lymph # (Auto) [place] # (Auto) Eos # (Auto) Baso # (Auto) PT INR POC Sodium Sodium 146 H POC Potassium Potassium 3.6 POC Chloride Chloride 112 H Carbon Dioxide 29 POC Total CO2 Anion Gap 4.0 POC Anion Gap POC BUN BUN 12 Creatinine 1.15 POC Creatinine Est Cr Clr Drug Dosing 100.1 Est GFR ( Amer) 89.2 Est GFR (Non-Af Amer) 77.0 BUN/Creatinine Ratio 10.6 Glucose 110 H POC Glucose 117 H POC Glucose (other) Lactate 1.4 Calcium 7.9 L POC Ioniz Calcium [place] Ionized Calcium Phosphorus 3.2 Magnesium 2.3 Total Bilirubin 0.9 Direct Bilirubin 0.2 AST 83 H ALT 39 Alkaline Phosphatase 99 Total Creatine Kinase Troponin I Total Protein 7.2 Albumin 3.6 Globulin Albumin/Globulin Ratio Lipase TSH Urine Color Urine Appearance Urine pH Ur Specific [place] Urine Protein Urine Glucose (UA) Urine Ketones Urine Blood Urine Nitrite Urine Bilirubin Urine Urobilinogen Ur Leukocyte Esterase Urine WBC (Auto) Urine RBC (Auto) U Hyaline Cast (Auto) U Epithel Cells (Auto) Urine Bacteria (Auto) Ur Renal Epithelial Cell Urine Mucus Nasal Screen MRSA (PCR) Urine Butalbital Salicylates Urine Opiates Screen Ur Methadone, Qual Acetaminophen Urine Barbiturates Ur Phencyclidine (PCP) U Amphetamines Confirm U Amphetamin/Meth Scrn U Methamphetamin Confrm MDMA (Ecstasy) Screen U MDMA (Ecstasy), Quant Urine Amobarbital Urine Pentobarbital Urine Phenobarbital Urine Secobarbital U OH-Alprazolam Confrm U Benzodiazepines Scrn 7-Amino Clonazepam Ur Nordiazepam Confirm U OH-ethylflurazepam U Lorazepam Cnf GC/MS U Oxazepam Confm GC/MS Ur Temazepam Confirm U OH-Triazolam Confirm U OH-Midazolam Confirm Ur Cocaine Metabolite U Marijuana (THC) Screen Ethyl Alcohol mg/dL C.trachomatis RNA Hepatitis A IgM Ab Hep Bs Antigen Hep B Core IgM Ab Hepatitis C Antibody N.gonorrhoeae RNA 04/12/19 04/12/19 04/12/19 04:37 04:38 06:21 WBC 11.54 H RBC 4.87 Hgb 15.1 POC Hgb Hct 44.0 POC Hct MCV 90.3 MCH 31.0 MCHC 34.3 RDW Std Deviation 41.2 RDW Coeff of Galo 12.6 Plt Count 177 MPV 9.7 Immature Gran % (Auto) 0.3 Neut % (Auto) 69.3 Lymph % (Auto) 18.7 [place] % (Auto) 11.4 Eos % (Auto) 0.1 Baso % (Auto) 0.2 Immature Gran # (Auto) 0.04 H Neut # (Auto) 7.99 H Lymph # (Auto) 2.16 [place] # (Auto) 1.32 H Eos # (Auto) 0.01 Baso # (Auto) 0.02 PT INR POC Sodium Sodium POC Potassium Potassium POC Chloride Chloride Carbon Dioxide POC Total CO2 Anion Gap POC Anion Gap POC BUN BUN Creatinine POC Creatinine Est Cr Clr Drug Dosing Est GFR ( Amer) Est GFR (Non-Af Amer) BUN/Creatinine Ratio Glucose POC Glucose POC Glucose (other) Lactate 1.1 Calcium POC Ioniz Calcium [place]ora Ionized Calcium Phosphorus Magnesium Total Bilirubin Direct Bilirubin AST ALT Alkaline Phosphatase Total Creatine Kinase 3245 H Troponin I Total Protein Albumin Globulin Albumin/Globulin Ratio Lipase TSH Urine Color Urine Appearance Urine pH Ur Specific [place] Urine Protein Urine Glucose (UA) Urine Ketones Urine Blood Urine Nitrite Urine Bilirubin Urine Urobilinogen Ur Leukocyte Esterase Urine WBC (Auto) Urine RBC (Auto) U Hyaline Cast (Auto) U Epithel Cells (Auto) Urine Bacteria (Auto) Ur Renal Epithelial Cell Urine Mucus Nasal Screen MRSA (PCR) Urine Butalbital Salicylates Urine Opiates Screen Ur Methadone, Qual Acetaminophen Urine Barbiturates Ur Phencyclidine (PCP) U Amphetamines Confirm U Amphetamin/Meth Scrn U Methamphetamin Confrm MDMA (Ecstasy) Screen U MDMA (Ecstasy), Quant Urine Amobarbital Urine Pentobarbital Urine Phenobarbital Urine Secobarbital U OH-Alprazolam Confrm U Benzodiazepines Scrn 7-Amino Clonazepam Ur Nordiazepam Confirm U OH-ethylflurazepam U Lorazepam Cnf GC/MS U Oxazepam Confm GC/MS Ur Temazepam Confirm U OH-Triazolam Confirm U OH-Midazolam Confirm Ur Cocaine Metabolite U Marijuana (THC) Screen Ethyl Alcohol mg/dL C.trachomatis RNA Hepatitis A IgM Ab Hep Bs Antigen Hep B Core IgM Ab Hepatitis C Antibody N.gonorrhoeae RNA 04/12/19 04/12/19 04/12/19 06:21 06:33 09:09 WBC RBC Hgb POC Hgb Hct POC Hct MCV MCH MCHC RDW Std Deviation RDW Coeff of [place] Plt Count MPV Immature Gran % (Auto) Neut % (Auto) Lymph % (Auto) [place] % (Auto) Eos % (Auto) Baso % (Auto) Immature Gran # (Auto) Neut # (Auto) Lymph # (Auto) [place] # (Auto) Eos # (Auto) Baso # (Auto) PT INR POC Sodium Sodium POC Potassium Potassium POC Chloride Chloride Carbon Dioxide POC Total CO2 Anion Gap POC Anion Gap POC BUN BUN Creatinine POC Creatinine Est Cr Clr Drug Dosing Est GFR ( Amer) Est GFR (Non-Af Amer) BUN/Creatinine Ratio Glucose POC Glucose 108 H POC Glucose (other) Lactate Calcium POC Ioniz Calcium [place] Ionized Calcium 1.05 L Phosphorus Magnesium Total Bilirubin Direct Bilirubin AST ALT Alkaline Phosphatase Total Creatine Kinase Troponin I Total Protein Albumin Globulin Albumin/Globulin Ratio Lipase TSH Urine Color Urine Appearance Urine pH Ur Specific [place] Urine Protein Urine Glucose (UA) Urine Ketones Urine Blood Urine Nitrite Urine Bilirubin Urine Urobilinogen Ur Leukocyte Esterase Urine WBC (Auto) Urine RBC (Auto) U Hyaline Cast (Auto) U Epithel Cells (Auto) Urine Bacteria (Auto) Ur Renal Epithelial Cell Urine Mucus Nasal Screen MRSA (PCR) Urine Butalbital Salicylates Urine Opiates Screen Ur Methadone, Qual Acetaminophen Urine Barbiturates Ur Phencyclidine (PCP) U Amphetamines Confirm U Amphetamin/Meth Scrn U Methamphetamin Confrm MDMA (Ecstasy) Screen U MDMA (Ecstasy), Quant Urine Amobarbital Urine Pentobarbital Urine Phenobarbital Urine Secobarbital U OH-Alprazolam Confrm U Benzodiazepines Scrn 7-Amino Clonazepam Ur Nordiazepam Confirm U OH-ethylflurazepam U Lorazepam Cnf GC/MS U Oxazepam Confm GC/MS Ur Temazepam Confirm U OH-Triazolam Confirm U OH-Midazolam Confirm Ur Cocaine Metabolite U Marijuana (THC) Screen Ethyl Alcohol mg/dL C.trachomatis RNA Hepatitis A IgM Ab Hep Bs Antigen Neg Hep B Core IgM Ab Hepatitis C Antibody Neg N.gonorrhoeae RNA 04/12/19 04/12/19 09:09 11:34 WBC RBC Hgb POC Hgb Hct POC Hct MCV MCH MCHC RDW Std Deviation RDW Coeff of [place] Plt Count MPV Immature Gran % (Auto) Neut % (Auto) Lymph % (Auto) [place] % (Auto) Eos % (Auto) Baso % (Auto) Immature Gran # (Auto) Neut # (Auto) Lymph # (Auto) [place] # (Auto) Eos # (Auto) Baso # (Auto) PT INR POC Sodium Sodium POC Potassium Potassium POC Chloride Chloride Carbon Dioxide POC Total CO2 Anion Gap POC Anion Gap POC BUN BUN Creatinine POC Creatinine Est Cr Clr Drug Dosing Est GFR ( Amer) Est GFR (Non-Af Amer) BUN/Creatinine Ratio Glucose POC Glucose 86 POC Glucose (other) Lactate Calcium POC Ioniz Calcium [place] Ionized Calcium Phosphorus Magnesium Total Bilirubin Direct Bilirubin AST ALT Alkaline Phosphatase Total Creatine Kinase Troponin I Total Protein Albumin Globulin Albumin/Globulin Ratio Lipase TSH Urine Color Urine Appearance Urine pH Ur Specific [place] Urine Protein Urine Glucose (UA) Urine Ketones Urine Blood Urine Nitrite Urine Bilirubin Urine Urobilinogen Ur Leukocyte Esterase Urine WBC (Auto) Urine RBC (Auto) U Hyaline Cast (Auto) U Epithel Cells (Auto) Urine Bacteria (Auto) Ur Renal Epithelial Cell Urine Mucus Nasal Screen MRSA (PCR) Urine Butalbital Salicylates Urine Opiates Screen Ur Methadone, Qual Acetaminophen Urine Barbiturates Ur Phencyclidine (PCP) U Amphetamines Confirm U Amphetamin/Meth Scrn U Methamphetamin Confrm MDMA (Ecstasy) Screen U MDMA (Ecstasy), Quant Urine Amobarbital Urine Pentobarbital Urine Phenobarbital Urine Secobarbital U OH-Alprazolam Confrm U Benzodiazepines Scrn 7-Amino Clonazepam Ur Nordiazepam Confirm U OH-ethylflurazepam U Lorazepam Cnf GC/MS U Oxazepam Confm GC/MS Ur Temazepam Confirm U OH-Triazolam Confirm U OH-Midazolam Confirm Ur Cocaine Metabolite U Marijuana (THC) Screen Ethyl Alcohol mg/dL C.trachomatis RNA Pending Hepatitis A IgM Ab Pending Hep Bs Antigen Hep B Core IgM Ab Pending Hepatitis C Antibody N.gonorrhoeae RNA Pending Medications Administered Home Medications Unobtainable 04/11/19 [History Confirmed 04/11/19] Active Medications Enoxaparin Sodium (Lovenox) 40 mg SQ DAILY CIERRA Stop: 05/12/19 08:59 Last Admin: 04/12/19 09:16 Dose: 40 mg Documented by: Parenteral Electrolytes (Normosol-R) 1,000 mls @ 125 mls/hr IV .Q8H CIERRA Stop: 05/11/19 21:59 Last Admin: 04/12/19 07:48 Dose: 125 mls/hr Documented by: Propofol (Diprivan) 1,000 mg in 100 mls @ 0 mls/hr IV .Q0M CIERRA; Protocol Stop: 04/14/19 22:40 Last Titration: 04/12/19 13:00 Dose: 0 mcg/kg/min, 0 mls/hr Documented by: Famotidine 20 mg/ Syringe 5 mls @ 2.5 mls/min IV BID CIERRA Stop: 05/12/19 08:59 Last Admin: 04/12/19 09:16 Dose: 2.5 mls/min Documented by: Miscellaneous (Icu Protocol For Hyperglycemia) 1 ea N/A PRN PRN; Protocol PRN Reason: Hyperglycemia Protocol Stop: 04/13/19 21:36 Phenobarbital (Phenobarbital) 64.8 mg PO BID CIERRA Stop: 04/12/19 21:01 Last Admin: 04/12/19 08:03 Dose: 64.8 mg Documented by: Phenobarbital (Phenobarbital) 32.4 mg PO BID CIERRA Stop: 04/14/19 09:01 Phenobarbital Sodium (Phenobarbital Sodium) 65 mg IV Q4H PRN; Protocol PRN Reason: withdrawal - see protocol Stop: 05/12/19 08:39 PG Care Time/CCT Total # of Minutes Spent Total Time Spent with Patient: Total time spent is greater than 50% in weatherization coordinator rdination of care (as documented) at patient's floor/unit and/or counseling patient: Critical Care Time: Yes Total Critical Care Time: 35
[2019-04-12 10:26] LABS: Hepatitis B Surface Antigen Neg (Neg)
[2019-04-12 10:55] LABS: Hepatitis C IgG 13Yrs+Old_Rflx Neg (Neg)
[2019-04-12 15:00] LABS: BUN Creatinine Ratio 10.3 (10-20); Creatinine Clr Calc Pharmacy 109.4 ml/min; Est GFR (African American) 99.6; Est GFR (Non-African American) 85.9; Potassium 3.8 mmol/L (3.5-5.1)
--- NOTE | 2019-04-12 18:55 | Hospitalist Progress Note ---
Date of Service April 12, 2019 Assessment & Plan (1) Altered mental status: Patient presented with acute metabolic secondary to recreational drug use versus recreational drug withdrawal. He admits to taking "mollies" which is likely MDMA but could have methamphetamine mix 10. Also with history of alcohol abuse Was intubated upon admission for airway protection given severe agitation, hypertensive urgency and tachycardia. Urine drug screen positive for methamphetamines, MDMA, barbiturates secondary to phenobarbital received here, and benzodiazepines-did receive over 10 mg of Ativan here on admission -Alcohol level was negative on admission -Continue empiric phenobarbital for presumptive alcohol withdrawal -Appreciate early childhood coordinator management -Is now extubated -Remains confused, paranoid, tachycardic, hypertensive -Avoiding beta-blockers given likely methamphetamine use (2) Recreational drug use: Farrah use-methamphetamine use likely and MDMA -Treatment as above (3) Tachycardia: Likely secondary to methamphetamine use as well as likely alcohol withdrawal -Avoid beta-blockers -Treating with phenobarbital for alcohol withdrawal (4) DTs (delirium tremens): As above -Phenobarbital (5) Respiratory failure: Secondary to drug intoxication and alcohol withdrawal, was intubated -Now extubated -Continue supplemental O2 to keep pulse ox greater than 90% (6) Drug overdose, intentional: As above (7) HTN (hypertension): Has a history of borderline hypertension but is not on any medication Here severely hypertensive likely secondary to drug use and withdrawal as above (8) History of gonorrhea: Reportedly with history of gonorrhea-unclear if has been treated -Studies pending here (9) Rhabdomyolysis: CPK elevated at 3045 and increased to 3700 later today AST mildly elevated at 83 -Likely secondary to drug use and severe agitation -Continue IV fluids -Follow CPK in the morning Renal failure is improved 1.3 creatinine down to 1.1 (10) Leukocytosis: Leukocytosis of 14 on admission is now improved down to 11-likely stress response -No evidence of infection CT of the head negative, CT of abdomen pelvis negative Chest x-ray negative for pneumonia Urinalysis without evidence of infection -Follow CBC (11) Methamphetamine use: As above (12) DVT prophylaxis: SCDs Pepcid twice daily Lovenox SQ Disposition-remain in ICU Subjective Patient was extubated this afternoon. He remains quite confused and seems paranoid. He will only tell me his first name, but says he does not remember his last name. He will not tell me where he lives. Yet he is able to tell me he has borderline hypertension, high cholesterol, and has been in the hospital in the past for 2 hernia repairs. 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 He denies chest pain or abdominal pain, denies nausea and is feeling hungry. Telemetry with sinus tachycardia Remains hypertensive Review of Systems Review of Systems: All systems reviewed & are unremarkable except as noted in HPI & below Physical Exam Constitutional: WD/WN, vitals as above Eyes: + anicteric sclerae, PERRL and reactive pupils ENMT: external ear and nose normal, oropharynx normal Neck: trachea midline, no thyromegaly Respiratory: normal respiratory effort, lungs clear to auscultation Cardiovascular: Rate/Rhythm: regular rhythm and + tachycardic Heart Sounds: no murmur Extremities: no edema Gastrointestinal (Abdomen): normal bowel sounds, soft, nontender, no hepatosplenomegaly Musculoskeletal: Extremities: extremities normal to inspection; no cyanosis and no clubbing Skin: no rashes, warm and dry Neurologic: moves all extremities, awake and + confused; no focal motor deficits Speech / Cognition: + abnormal speech (low volume) Psychiatric: Orientation: alert and oriented to person (But claims to only know his first name, claims to forget his birthdate); + not oriented to place and + not oriented to time Eye Contact: + fair eye contact Results & Data Vital Signs (Past 12 Hours) Vital Signs Temp Pulse Resp BP Pulse Ox 04/12/19 18:29 111 H 18 153/84 H 94 04/12/19 18:01 112 H 189/105 H 96 04/12/19 17:11 118 H 166/94 H 92 04/12/19 16:01 113 H 196/108 H 91 04/12/19 16:00 37.1 C 04/12/19 15:24 123 H 17 93 04/12/19 15:01 124 H 160/100 H 95 04/12/19 14:01 122 H 147/104 H 92 04/12/19 13:01 117 H 151/97 H 93 04/12/19 12:42 111 H 144/96 H 93 04/12/19 12:01 112 H 136/89 93 04/12/19 12:00 37.2 C 04/12/19 11:01 109 H 133/86 90 04/12/19 11:00 110 H 93 04/12/19 10:01 110 H 134/85 91 04/12/19 10:00 109 H 93 04/12/19 09:50 18 04/12/19 09:35 107 H 149/93 H 93 04/12/19 09:31 106 H 149/91 H 92 04/12/19 09:00 109 H 147/86 H 94 04/12/19 08:30 110 H 131/88 93 04/12/19 08:01 37.2 C 111 H 131/85 93 04/12/19 08:00 37.2 C 04/12/19 07:33 110 H 18 94 04/12/19 07:31 112 H 144/89 H 93 04/12/19 07:01 108 H 157/94 H 96 Laboratory Results 04/12/19 04/12/19 04/12/19 Range/Units 14:25 11:34 09:09 WBC (4.8-10.8) K/uL RBC (4.7-6.1) M/uL Hgb (14.0-18.0) g/dL Hct (42-52) % MCV (80-100) fL MCH (25-34) pg MCHC (32-36) g/dL RDW Std Deviation (36.4-46.3) fL RDW Coeff of Galo (11.5-14.5) % Plt Count (130-400) K/uL MPV (7.4-10.4) fL Immature Gran % (Auto) % Neut % (Auto) % Lymph % (Auto) % [place]ander % (Auto) % Eos % (Auto) % Baso % (Auto) % Immature Gran # (Auto) (0.00-0.02) K/uL Neut # (Auto) (1.4-6.5) K/uL Lymph # (Auto) (1.2-3.4) K/uL Lander # (Auto) (0.11-0.59) K/uL Eos # (Auto) (0-0.5) K/uL Baso # (Auto) (0-0.2) K/uL Sodium 141 (136-145) mmol/L Potassium 3.8 (3.5-5.1) mmol/L Chloride 110 H (98-107) mmol/L Carbon Dioxide 25 (21-32) mmol/L Anion Gap 6.0 (3-11) BUN 11 (7-18) mg/dl Creatinine 1.05 (0.6-1.4) mg/dl Est Cr Clr Drug Dosing 109.4 ml/min Est GFR ( Amer) 99.6 Est GFR (Non-Af Amer) 85.9 BUN/Creatinine Ratio 10.3 (10-20) Glucose 99 (70-99) mg/dl POC Glucose 86 (70-99) Lactate (0.4-2.0) mmol/L Calcium 8.0 L (8.5-10.1) mg/dl Ionized Calcium (1.12-1.32) mmol/L Phosphorus (2.5-4.9) mg/dl Magnesium (1.8-2.4) mg/dl Total Bilirubin (0.2-1) mg/dl Direct Bilirubin (0-0.2) mg/dl AST (15-37) U/L ALT (12-78) U/L Alkaline Phosphatase (45-117) U/L Total Creatine Kinase 3764 H (39-308) U/L Total Protein (6.4-8.2) gm/dl Albumin (3.4-5.0) gm/dl Urine Color Urine Appearance (Clear) Urine pH (4.5-7.5) Ur Specific [place] (1.000-1.030) Urine Protein (Negative) Urine Glucose (UA) (Negative) Urine Ketones (Negative) Urine Blood (Negative) Urine Nitrite (Negative) Urine Bilirubin (Negative) Urine Urobilinogen (Negative) Ur Leukocyte Esterase (Negative) Urine WBC (Auto) (0-5) /hpf Urine RBC (Auto) (0-4) /hpf U Hyaline Cast (Auto) (0-5) /lpf U Epithel Cells (Auto) (0-5) /lpf Urine Bacteria (Auto) (Negative) Ur Renal Epithelial Cell Urine Mucus (None Prsent) Nasal Screen MRSA (PCR) (Negative) Urine Butalbital Urine Opiates Screen (Neg) Ur Methadone, Qual (Neg) Urine Barbiturates (Neg) Ur Phencyclidine (PCP) (Neg) U Amphetamines Confirm U Amphetamin/Meth Scrn (Neg) U Methamphetamin Confrm MDMA (Ecstasy) Screen (Neg) U MDMA (Ecstasy), Quant Urine Amobarbital Urine Pentobarbital Urine Phenobarbital Urine Secobarbital U OH-Alprazolam Confrm U Benzodiazepines Scrn (Neg) 7-Amino Clonazepam Ur Nordiazepam Confirm U OH-ethylflurazepam U Lorazepam Cnf GC/MS U Oxazepam Confm GC/MS Ur Temazepam Confirm U OH-Triazolam Confirm U OH-Midazolam Confirm Ur Cocaine Metabolite (Neg) U Marijuana (THC) Screen (Neg) C.trachomatis RNA Pending Hepatitis A IgM Ab Pending Hep Bs Antigen (Neg) Hep B Core IgM Ab Pending Hepatitis C Antibody (Neg) N.gonorrhoeae RNA Pending 04/12/19 04/12/19 04/12/19 Range/Units 09:09 06:33 06:21 WBC (4.8-10.8) K/uL RBC (4.7-6.1) M/uL Hgb (14.0-18.0) g/dL Hct (42-52) % MCV (80-100) fL MCH (25-34) pg MCHC (32-36) g/dL RDW Std Deviation (36.4-46.3) fL RDW Coeff of Galo (11.5-14.5) % Plt Count (130-400) K/uL MPV (7.4-10.4) fL Immature Gran % (Auto) % Neut % (Auto) % Lymph % (Auto) % Lander % (Auto) % Eos % (Auto) % Baso % (Auto) % Immature Gran # (Auto) (0.00-0.02) K/uL Neut # (Auto) (1.4-6.5) K/uL Lymph # (Auto) (1.2-3.4) K/uL Lander # (Auto) (0.11-0.59) K/uL Eos # (Auto) (0-0.5) K/uL Baso # (Auto) (0-0.2) K/uL Sodium (136-145) mmol/L Potassium (3.5-5.1) mmol/L Chloride (98-107) mmol/L Carbon Dioxide (21-32) mmol/L Anion Gap (3-11) BUN (7-18) mg/dl Creatinine (0.6-1.4) mg/dl Est Cr Clr Drug Dosing ml/min Est GFR ( Amer) Est GFR (Non-Af Amer) BUN/Creatinine Ratio (10-20) Glucose (70-99) mg/dl POC Glucose 108 H (70-99) Lactate (0.4-2.0) mmol/L Calcium (8.5-10.1) mg/dl Ionized Calcium 1.05 L (1.12-1.32) mmol/L Phosphorus (2.5-4.9) mg/dl Magnesium (1.8-2.4) mg/dl Total Bilirubin (0.2-1) mg/dl Direct Bilirubin (0-0.2) mg/dl AST (15-37) U/L ALT (12-78) U/L Alkaline Phosphatase (45-117) U/L Total Creatine Kinase (39-308) U/L Total Protein (6.4-8.2) gm/dl Albumin (3.4-5.0) gm/dl Urine Color Urine Appearance (Clear) Urine pH (4.5-7.5) Ur Specific [place] (1.000-1.030) Urine Protein (Negative) Urine Glucose (UA) (Negative) Urine Ketones (Negative) Urine Blood (Negative) Urine Nitrite (Negative) Urine Bilirubin (Negative) Urine Urobilinogen (Negative) Ur Leukocyte Esterase (Negative) Urine WBC (Auto) (0-5) /hpf Urine RBC (Auto) (0-4) /hpf U Hyaline Cast (Auto) (0-5) /lpf U Epithel Cells (Auto) (0-5) /lpf Urine Bacteria (Auto) (Negative) Ur Renal Epithelial Cell Urine Mucus (None Prsent) Nasal Screen MRSA (PCR) (Negative) Urine Butalbital Urine Opiates Screen (Neg) Ur Methadone, Qual (Neg) Urine Barbiturates (Neg) Ur Phencyclidine (PCP) (Neg) U Amphetamines Confirm U Amphetamin/Meth Scrn (Neg) U Methamphetamin Confrm MDMA (Ecstasy) Screen (Neg) U MDMA (Ecstasy), Quant Urine Amobarbital Urine Pentobarbital Urine Phenobarbital Urine Secobarbital U OH-Alprazolam Confrm U Benzodiazepines Scrn (Neg) 7-Amino Clonazepam Ur Nordiazepam Confirm U OH-ethylflurazepam U Lorazepam Cnf GC/MS U Oxazepam Confm GC/MS Ur Temazepam Confirm U OH-Triazolam Confirm U OH-Midazolam Confirm Ur Cocaine Metabolite (Neg) U Marijuana (THC) Screen (Neg) C.trachomatis RNA Hepatitis A IgM Ab Hep Bs Antigen Neg (Neg) Hep B Core IgM Ab Hepatitis C Antibody Neg (Neg) N.gonorrhoeae RNA 04/12/19 04/12/19 04/12/19 Range/Units 06:21 04:38 04:37 WBC 11.54 H (4.8-10.8) K/uL RBC 4.87 (4.7-6.1) M/uL Hgb 15.1 (14.0-18.0) g/dL Hct 44.0 (42-52) % MCV 90.3 (80-100) fL MCH 31.0 (25-34) pg MCHC 34.3 (32-36) g/dL RDW Std Deviation 41.2 (36.4-46.3) fL RDW Coeff of Galo 12.6 (11.5-14.5) % Plt Count 177 (130-400) K/uL MPV 9.7 (7.4-10.4) fL Immature Gran % (Auto) 0.3 % Neut % (Auto) 69.3 % Lymph % (Auto) 18.7 % Lander % (Auto) 11.4 % Eos % (Auto) 0.1 % Baso % (Auto) 0.2 % Immature Gran # (Auto) 0.04 H (0.00-0.02) K/uL Neut # (Auto) 7.99 H (1.4-6.5) K/uL Lymph # (Auto) 2.16 (1.2-3.4) K/uL Lander # (Auto) 1.32 H (0.11-0.59) K/uL Eos # (Auto) 0.01 (0-0.5) K/uL Baso # (Auto) 0.02 (0-0.2) K/uL Sodium (136-145) mmol/L Potassium (3.5-5.1) mmol/L Chloride (98-107) mmol/L Carbon Dioxide (21-32) mmol/L Anion Gap (3-11) BUN (7-18) mg/dl Creatinine (0.6-1.4) mg/dl Est Cr Clr Drug Dosing ml/min Est GFR ( Amer) Est GFR (Non-Af Amer) BUN/Creatinine Ratio (10-20) Glucose (70-99) mg/dl POC Glucose (70-99) Lactate 1.1 (0.4-2.0) mmol/L Calcium (8.5-10.1) mg/dl Ionized Calcium (1.12-1.32) mmol/L Phosphorus (2.5-4.9) mg/dl Magnesium (1.8-2.4) mg/dl Total Bilirubin (0.2-1) mg/dl Direct Bilirubin (0-0.2) mg/dl AST (15-37) U/L ALT (12-78) U/L Alkaline Phosphatase (45-117) U/L Total Creatine Kinase 3245 H (39-308) U/L Total Protein (6.4-8.2) gm/dl Albumin (3.4-5.0) gm/dl Urine Color Urine Appearance (Clear) Urine pH (4.5-7.5) Ur Specific [place] (1.000-1.030) Urine Protein (Negative) Urine Glucose (UA) (Negative) Urine Ketones (Negative) Urine Blood (Negative) Urine Nitrite (Negative) Urine Bilirubin (Negative) Urine Urobilinogen (Negative) Ur Leukocyte Esterase (Negative) Urine WBC (Auto) (0-5) /hpf Urine RBC (Auto) (0-4) /hpf U Hyaline Cast (Auto) (0-5) /lpf U Epithel Cells (Auto) (0-5) /lpf Urine Bacteria (Auto) (Negative) Ur Renal Epithelial Cell Urine Mucus (None Prsent) Nasal Screen MRSA (PCR) (Negative) Urine Butalbital Urine Opiates Screen (Neg) Ur Methadone, Qual (Neg) Urine Barbiturates (Neg) Ur Phencyclidine (PCP) (Neg) U Amphetamines Confirm U Amphetamin/Meth Scrn (Neg) U Methamphetamin Confrm MDMA (Ecstasy) Screen (Neg) U MDMA (Ecstasy), Quant Urine Amobarbital Urine Pentobarbital Urine Phenobarbital Urine Secobarbital U OH-Alprazolam Confrm U Benzodiazepines Scrn (Neg) 7-Amino Clonazepam Ur Nordiazepam Confirm U OH-ethylflurazepam U Lorazepam Cnf GC/MS U Oxazepam Confm GC/MS Ur Temazepam Confirm U OH-Triazolam Confirm U OH-Midazolam Confirm Ur Cocaine Metabolite (Neg) U Marijuana (THC) Screen (Neg) C.trachomatis RNA Hepatitis A IgM Ab Hep Bs Antigen (Neg) Hep B Core IgM Ab Hepatitis C Antibody (Neg) N.gonorrhoeae RNA 04/12/19 04/12/19 04/11/19 Range/Units 04:37 00:25 23:19 WBC (4.8-10.8) K/uL RBC (4.7-6.1) M/uL Hgb (14.0-18.0) g/dL Hct (42-52) % MCV (80-100) fL MCH (25-34) pg MCHC (32-36) g/dL RDW Std Deviation (36.4-46.3) fL RDW Coeff of Galo (11.5-14.5) % Plt Count (130-400) K/uL MPV (7.4-10.4) fL Immature Gran % (Auto) % Neut % (Auto) % Lymph % (Auto) % [place]ander % (Auto) % Eos % (Auto) % Baso % (Auto) % Immature Gran # (Auto) (0.00-0.02) K/uL Neut # (Auto) (1.4-6.5) K/uL Lymph # (Auto) (1.2-3.4) K/uL Lander # (Auto) (0.11-0.59) K/uL Eos # (Auto) (0-0.5) K/uL Baso # (Auto) (0-0.2) K/uL Sodium 146 H (136-145) mmol/L Potassium 3.6 (3.5-5.1) mmol/L Chloride 112 H (98-107) mmol/L Carbon Dioxide 29 (21-32) mmol/L Anion Gap 4.0 (3-11) BUN 12 (7-18) mg/dl Creatinine 1.15 (0.6-1.4) mg/dl Est Cr Clr Drug Dosing 100.1 ml/min Est GFR ( Amer) 89.2 Est GFR (Non-Af Amer) 77.0 BUN/Creatinine Ratio 10.6 (10-20) Glucose 110 H (70-99) mg/dl POC Glucose 117 H (70-99) Lactate 1.4 (0.4-2.0) mmol/L Calcium 7.9 L (8.5-10.1) mg/dl Ionized Calcium (1.12-1.32) mmol/L Phosphorus 3.2 (2.5-4.9) mg/dl Magnesium 2.3 (1.8-2.4) mg/dl Total Bilirubin 0.9 (0.2-1) mg/dl Direct Bilirubin 0.2 (0-0.2) mg/dl AST 83 H (15-37) U/L ALT 39 (12-78) U/L Alkaline Phosphatase 99 (45-117) U/L Total Creatine Kinase (39-308) U/L Total Protein 7.2 (6.4-8.2) gm/dl Albumin 3.6 (3.4-5.0) gm/dl Urine Color Urine Appearance (Clear) Urine pH (4.5-7.5) Ur Specific [place] (1.000-1.030) Urine Protein (Negative) Urine Glucose (UA) (Negative) Urine Ketones (Negative) Urine Blood (Negative) Urine Nitrite (Negative) Urine Bilirubin (Negative) Urine Urobilinogen (Negative) Ur Leukocyte Esterase (Negative) Urine WBC (Auto) (0-5) /hpf Urine RBC (Auto) (0-4) /hpf U Hyaline Cast (Auto) (0-5) /lpf U Epithel Cells (Auto) (0-5) /lpf Urine Bacteria (Auto) (Negative) Ur Renal Epithelial Cell Urine Mucus (None Prsent) Nasal Screen MRSA (PCR) (Negative) Urine Butalbital Urine Opiates Screen (Neg) Ur Methadone, Qual (Neg) Urine Barbiturates (Neg) Ur Phencyclidine (PCP) (Neg) U Amphetamines Confirm U Amphetamin/Meth Scrn (Neg) U Methamphetamin Confrm MDMA (Ecstasy) Screen (Neg) U MDMA (Ecstasy), Quant Urine Amobarbital Urine Pentobarbital Urine Phenobarbital Urine Secobarbital U OH-Alprazolam Confrm U Benzodiazepines Scrn (Neg) 7-Amino Clonazepam Ur Nordiazepam Confirm U OH-ethylflurazepam U Lorazepam Cnf GC/MS U Oxazepam Confm GC/MS Ur Temazepam Confirm U OH-Triazolam Confirm U OH-Midazolam Confirm Ur Cocaine Metabolite (Neg) U Marijuana (THC) Screen (Neg) C.trachomatis RNA Hepatitis A IgM Ab Hep Bs Antigen (Neg) Hep B Core IgM Ab Hepatitis C Antibody (Neg) N.gonorrhoeae RNA 04/11/19 04/11/19 04/11/19 Range/Units 22:57 21:55 21:55 WBC (4.8-10.8) K/uL RBC (4.7-6.1) M/uL Hgb (14.0-18.0) g/dL Hct (42-52) % MCV (80-100) fL MCH (25-34) pg MCHC (32-36) g/dL RDW Std Deviation (36.4-46.3) fL RDW Coeff of Galo (11.5-14.5) % Plt Count (130-400) K/uL MPV (7.4-10.4) fL Immature Gran % (Auto) % Neut % (Auto) % Lymph % (Auto) % [place]ander % (Auto) % Eos % (Auto) % Baso % (Auto) % Immature Gran # (Auto) (0.00-0.02) K/uL Neut # (Auto) (1.4-6.5) K/uL Lymph # (Auto) (1.2-3.4) K/uL Lander # (Auto) (0.11-0.59) K/uL Eos # (Auto) (0-0.5) K/uL Baso # (Auto) (0-0.2) K/uL Sodium (136-145) mmol/L Potassium (3.5-5.1) mmol/L Chloride (98-107) mmol/L Carbon Dioxide (21-32) mmol/L Anion Gap (3-11) BUN (7-18) mg/dl Creatinine (0.6-1.4) mg/dl Est Cr Clr Drug Dosing ml/min Est GFR ( Amer) Est GFR (Non-Af Amer) BUN/Creatinine Ratio (10-20) Glucose (70-99) mg/dl POC Glucose (70-99) Lactate (0.4-2.0) mmol/L Calcium (8.5-10.1) mg/dl Ionized Calcium (1.12-1.32) mmol/L Phosphorus (2.5-4.9) mg/dl Magnesium (1.8-2.4) mg/dl Total Bilirubin (0.2-1) mg/dl Direct Bilirubin (0-0.2) mg/dl AST (15-37) U/L ALT (12-78) U/L Alkaline Phosphatase (45-117) U/L Total Creatine Kinase (39-308) U/L Total Protein (6.4-8.2) gm/dl Albumin (3.4-5.0) gm/dl Urine Color Urine Appearance (Clear) Urine pH (4.5-7.5) Ur Specific [place] (1.000-1.030) Urine Protein (Negative) Urine Glucose (UA) (Negative) Urine Ketones (Negative) Urine Blood (Negative) Urine Nitrite (Negative) Urine Bilirubin (Negative) Urine Urobilinogen (Negative) Ur Leukocyte Esterase (Negative) Urine WBC (Auto) (0-5) /hpf Urine RBC (Auto) (0-4) /hpf U Hyaline Cast (Auto) (0-5) /lpf U Epithel Cells (Auto) (0-5) /lpf Urine Bacteria (Auto) (Negative) Ur Renal Epithelial Cell Urine Mucus (None Prsent) Nasal Screen MRSA (PCR) Negative (Negative) Urine Butalbital Pending Urine Opiates Screen (Neg) Ur Methadone, Qual (Neg) Urine Barbiturates (Neg) Ur Phencyclidine (PCP) (Neg) U Amphetamines Confirm Pending U Amphetamin/Meth Scrn (Neg) U Methamphetamin Confrm Pending MDMA (Ecstasy) Screen (Neg) U MDMA (Ecstasy), Quant Pending Urine Amobarbital Pending Urine Pentobarbital Pending Urine Phenobarbital Pending Urine Secobarbital Pending U OH-Alprazolam Confrm Pending U Benzodiazepines Scrn (Neg) 7-Amino Clonazepam Pending Ur Nordiazepam Confirm Pending U OH-ethylflurazepam Pending U Lorazepam Cnf GC/MS Pending U Oxazepam Confm GC/MS Pending Ur Temazepam Confirm Pending U OH-Triazolam Confirm Pending U OH-Midazolam Confirm Pending Ur Cocaine Metabolite (Neg) U Marijuana (THC) Screen (Neg) C.trachomatis RNA Hepatitis A IgM Ab Hep Bs Antigen (Neg) Hep B Core IgM Ab Hepatitis C Antibody (Neg) N.gonorrhoeae RNA 04/11/19 04/11/19 04/11/19 Range/Units 21:55 21:55 18:33 WBC (4.8-10.8) K/uL RBC (4.7-6.1) M/uL Hgb (14.0-18.0) g/dL Hct (42-52) % MCV (80-100) fL MCH (25-34) pg MCHC (32-36) g/dL RDW Std Deviation (36.4-46.3) fL RDW Coeff of Galo (11.5-14.5) % Plt Count (130-400) K/uL MPV (7.4-10.4) fL Immature Gran % (Auto) % Neut % (Auto) % Lymph % (Auto) % [place] % (Auto) % Eos % (Auto) % Baso % (Auto) % Immature Gran # (Auto) (0.00-0.02) K/uL Neut # (Auto) (1.4-6.5) K/uL Lymph # (Auto) (1.2-3.4) K/uL Lander # (Auto) (0.11-0.59) K/uL Eos # (Auto) (0-0.5) K/uL Baso # (Auto) (0-0.2) K/uL Sodium (136-145) mmol/L Potassium (3.5-5.1) mmol/L Chloride (98-107) mmol/L Carbon Dioxide (21-32) mmol/L Anion Gap (3-11) BUN (7-18) mg/dl Creatinine (0.6-1.4) mg/dl Est Cr Clr Drug Dosing ml/min Est GFR ( Amer) Est GFR (Non-Af Amer) BUN/Creatinine Ratio (10-20) Glucose (70-99) mg/dl POC Glucose (70-99) Lactate (0.4-2.0) mmol/L Calcium (8.5-10.1) mg/dl Ionized Calcium (1.12-1.32) mmol/L Phosphorus (2.5-4.9) mg/dl Magnesium (1.8-2.4) mg/dl Total Bilirubin (0.2-1) mg/dl Direct Bilirubin (0-0.2) mg/dl AST (15-37) U/L ALT (12-78) U/L Alkaline Phosphatase (45-117) U/L Total Creatine Kinase 211 (39-308) U/L Total Protein (6.4-8.2) gm/dl Albumin (3.4-5.0) gm/dl Urine Color Yellow Urine Appearance Clear (Clear) Urine pH 5.0 (4.5-7.5) Ur Specific [place] > 1.045 H (1.000-1.030) Urine Protein 1+ H (Negative) Urine Glucose (UA) Negative (Negative) Urine Ketones Negative (Negative) Urine Blood Trace H (Negative) Urine Nitrite Negative (Negative) Urine Bilirubin Negative (Negative) Urine Urobilinogen Negative (Negative) Ur Leukocyte Esterase Negative (Negative) Urine WBC (Auto) 1-5 (0-5) /hpf Urine RBC (Auto) 5-10 H (0-4) /hpf U Hyaline Cast (Auto) 1-5 (0-5) /lpf U Epithel Cells (Auto) >30 H (0-5) /lpf Urine Bacteria (Auto) Negative (Negative) Ur Renal Epithelial Cell Not Reportable Urine Mucus Present A (None Prsent) Nasal Screen MRSA (PCR) (Negative) Urine Butalbital Urine Opiates Screen Neg (Neg) Ur Methadone, Qual Neg (Neg) Urine Barbiturates Pos H (Neg) Ur Phencyclidine (PCP) Neg (Neg) U Amphetamines Confirm U Amphetamin/Meth Scrn Pos H (Neg) U Methamphetamin Confrm MDMA (Ecstasy) Screen Pos H (Neg) U MDMA (Ecstasy), Quant Urine Amobarbital Urine Pentobarbital Urine Phenobarbital Urine Secobarbital U OH-Alprazolam Confrm U Benzodiazepines Scrn Pos H (Neg) 7-Amino Clonazepam Ur Nordiazepam Confirm U OH-ethylflurazepam U Lorazepam Cnf GC/MS U Oxazepam Confm GC/MS Ur Temazepam Confirm U OH-Triazolam Confirm U OH-Midazolam Confirm Ur Cocaine Metabolite Neg (Neg) U Marijuana (THC) Screen Neg (Neg) C.trachomatis RNA Hepatitis A IgM Ab Hep Bs Antigen (Neg) Hep B Core IgM Ab Hepatitis C Antibody (Neg) N.gonorrhoeae RNA PG Care Time/CCT Total # of Minutes Spent Total Time Spent with Patient: Total time spent is greater than 50% in coordina tion of care (as documented) at patient's floor/unit and/or counseling patient: (1) Altered mental status Altered mental status type: unspecified Qualified Code(s): R41.82 - Altered mental status, unspecified (2) Respiratory failure Chronicity: acute Respiratory failure complication: unspecified whether with hypoxia or hypercapnia Qualified Code(s): J96.00 - Acute respiratory failure, unspecified whether with hypoxia or hypercapnia (3) HTN (hypertension) Hypertension type: essential hypertension Qualified Code(s): I10 - Essential (primary) hypertension
[2019-04-13] MEDS: PHENobarbital sodium 65 MG/ML VIAL IV PRN ×2 (00:02→03:48)
[2019-04-13] MEDS: NORMOSOL-R 1,000 ML IV SCH ×2 (00:08→07:19)
[2019-04-13 03:43] LABS: Basophils # (auto) 0.03 K/uL (0-0.2); Basophils % (auto) 0.2 %; Eosinophils # (auto) 0.06 K/uL (0-0.5); Eosinophils % (auto) 0.4 %; Hematocrit (blood only) 44.9 % (42-52); Hemoglobin 16.1 g/dL (14.0-18.0); Immature Granulocytes # (auto) 0.04 K/uL (0.00-0.02); Immature Granulocytes % (auto) 0.3 %; Lymphocytes % (auto) 17.5 %; Mean Corpuscular Hgb Conc 35.9 g/dL (32-36); Mean Corpuscular Volume 88.2 fL (80-100); Mean Platelet Volume 8.8 fL (7.4-10.4); Monocytes # (auto) 1.66 K/uL (0.11-0.59); Monocytes % (auto) 12.1 %; Neutrophils # (auto) 9.53 K/uL (1.4-6.5); Neutrophils % (auto) 69.5 %; Platelet Count 177 K/uL (130-400); RDW Standard Deviation 38.3 fL (36.4-46.3); Red Blood Count 5.09 M/uL (4.7-6.1); White Blood Count 13.72 K/uL (4.8-10.8)
[2019-04-13 04:13] LABS: Albumin Level 3.6 gm/dl (3.4-5.0); BUN Creatinine Ratio 8.5 (10-20); Bilirubin,Total 1.5 mg/dl (0.2-1); Calcium 7.9 mg/dl (8.5-10.1); Creatinine Clr Calc Pharmacy 102.6 ml/min; Est GFR (African American) 92.1; Est GFR (Non-African American) 79.5; Magnesium 2.3 mg/dl (1.8-2.4); Potassium 3.7 mmol/L (3.5-5.1); Total Protein 7.7 gm/dl (6.4-8.2)
[2019-04-13] MEDS ORDERED: POTASSIUM PHOS 3 MMOL/1 ML INFUSION IV STA (04:43)
[2019-04-13] MEDS ORDERED: POTASSIUM PHOSPHATE 21 MMOL in SODIUM CHLORIDE 0.9% 500 ML IV ONE (05:00)
[2019-04-13] MEDS ORDERED: CALCIUM GLUCONATE 10% 1,000 MG in SODIUM CHLORIDE 0.9% 50 ML IV STA (05:16)
[2019-04-13] MEDS: ENOXAPARIN INJ 40 MG/0.4 ML SYR SQ SCH ×2 (07:16→07:24)
[2019-04-13] MEDS: PHENobarbital 32.4 MG TAB PO SCH ×2 (09:51→20:24)
[2019-04-13] MEDS ORDERED: ONDANSETRON INJ 2 MG/ML 2 ML VIAL IV PRN (10:21)
[2019-04-13] MEDS ORDERED: ONDANSETRON INJ 2 MG/ML 2 ML VIAL ONE (10:26)
--- NOTE | 2019-04-13 10:26 | Critical Care Progress Note ---
Date of Service April 13, 2019 Assessment & Plan (1) Acute metabolic encephalopathy: Reason Critically Ill: Middle-aged -Hungarian male requiring intubation secondary to acute encephalopathy PLAN: Neuro: Acute encephalopathy: Resolved Intentional drug overdose -Additional history obtained that this was a "body pocket builder" incident related to incarceration and consumption of illicit substances to prevent discovery by law enforcement Toxidrome can be consistent with sympathomimetic overdose which has significant overlap with alcohol withdrawal -We will continue with empiric phenobarbital for additional 24 hours Resp: Acute respiratory failure: Resolved -Weaning sedation CV: Tachycardia -Avoiding beta-blockers secondary to reported "roney" use -Reported roney has high probability of being methamphetamine Fluids/Renal: Rhabdomyolysisminimal: Resolved ID: Reported history of gonorrhea -Previously treated -RNA probes pending GI/Nutrition: Mild elevation in liver enzymes -Acute hepatitis panel pending C both negative type a pending Heme: Lovenox DVT prophylaxis Endocrine: ICU hyperglycemia protocol Vascular access: Peripheral IVs Code Status: Full Patient appears to be stable for downgrade out of ICU. Discussed with Dr. Bhardwaj. I believe the toxidrome is more consistent with methamphetamine will continue the phenobarbital for additional day and allow the patient to further stabilize prior to discharge. If patient desires to leave against medical vice I believe he has capacity to do so however there is an arrest warrant placed on the chart and would notify appropriate individuals. (2) Drug overdose, intentional: (3) Incarceration: (4) Recreational drug use: (5) Recreational drug withdrawal: (6) Tachycardia: Subjective Patient reports he "feels a little better" reported to nursing staff that in restroom at police station he ingested his substances at that time. Patient has been able to eat and drink and is sitting upright in chair Review of Systems Review of Systems: Denies chest pain shortness of breath Physical Exam Physical Exam: General: Alert. nontoxic. Skin: Warm, dry, Head: Atraumatic Ears, nose, mouth and throat: airway patent Cardiovascular: Normal peripheral perfusion Respiratory: no respiratory distress Gastrointestinal: Non distended Musculoskeletal: No deformity Results & Data Vital Signs (Past 12 Hours) Vital Signs Temp Pulse Resp BP Pulse Ox 04/13/19 08:06 121 H 19 167/98 H 92 04/13/19 07:00 128 H 36 H 94 04/13/19 04:01 87 24 181/100 H 93 04/13/19 04:00 119 H 22 95 04/13/19 03:46 124 H 26 H 162/93 H 94 04/13/19 03:03 31 H 04/13/19 02:11 95 H 28 H 149/86 H 95 04/13/19 02:07 87 26 H 04/13/19 01:01 104 H 27 H 157/98 H 96 04/13/19 01:00 98 H 26 H 95 04/13/19 00:01 103 H 26 H 159/94 H 94 04/13/19 00:00 118 H 32 H 94 04/12/19 23:19 37.1 C 106 H 27 H 181/84 H 93 04/12/19 23:00 110 H 28 H 92 04/12/19 22:16 103 H 26 H 190/99 H 92 Laboratory Results 04/13/19 04/13/19 04/13/19 Range/Units 05:43 04:21 03:26 WBC (4.8-10.8) K/uL RBC (4.7-6.1) M/uL Hgb (14.0-18.0) g/dL Hct (42-52) % MCV (80-100) fL MCH (25-34) pg MCHC (32-36) g/dL RDW Std Deviation (36.4-46.3) fL RDW Coeff of Gal[place] (11.5-14.5) % Plt Count (130-400) K/uL MPV (7.4-10.4) fL Immature Gran % (Auto) % Neut % (Auto) % Lymph % (Auto) % [place] % (Auto) % Eos % (Auto) % Baso % (Auto) % Immature Gran # (Auto) (0.00-0.02) K/uL Neut # (Auto) (1.4-6.5) K/uL Lymph # (Auto) (1.2-3.4) K/uL [place] # (Auto) (0.11-0.59) K/uL Eos # (Auto) (0-0.5) K/uL Baso # (Auto) (0-0.2) K/uL Sodium (136-145) mmol/L Potassium (3.5-5.1) mmol/L Chloride (98-107) mmol/L Carbon Dioxide (21-32) mmol/L Anion Gap (3-11) BUN (7-18) mg/dl Creatinine (0.6-1.4) mg/dl Est Cr Clr Drug Dosing ml/min Est GFR ( Amer) Est GFR (Non-Af Amer) BUN/Creatinine Ratio (10-20) Glucose (70-99) mg/dl POC Glucose 99 (70-99) Lactate (0.4-2.0) mmol/L Calcium (8.5-10.1) mg/dl Ionized Calcium 1.01 L (1.12-1.32) mmol/L Phosphorus (2.5-4.9) mg/dl Magnesium (1.8-2.4) mg/dl Total Bilirubin (0.2-1) mg/dl Direct Bilirubin 0.3 H (0-0.2) mg/dl AST (15-37) U/L ALT (12-78) U/L Alkaline Phosphatase (45-117) U/L Total Creatine Kinase (39-308) U/L Total Protein (6.4-8.2) gm/dl Albumin (3.4-5.0) gm/dl Hep Bs Antigen (Neg) Hepatitis C Antibody (Neg) 04/13/19 04/13/19 04/13/19 Range/Units 03:26 03:26 03:26 WBC 13.72 H (4.8-10.8) K/uL RBC 5.09 (4.7-6.1) M/uL Hgb 16.1 (14.0-18.0) g/dL Hct 44.9 (42-52) % MCV 88.2 (80-100) fL MCH 31.6 (25-34) pg MCHC 35.9 (32-36) g/dL RDW Std Deviation 38.3 (36.4-46.3) fL RDW Coeff of Galo 12.0 (11.5-14.5) % Plt Count 177 (130-400) K/uL MPV 8.8 (7.4-10.4) fL Immature Gran % (Auto) 0.3 % Neut % (Auto) 69.5 % Lymph % (Auto) 17.5 % [place] % (Auto) 12.1 % Eos % (Auto) 0.4 % Baso % (Auto) 0.2 % Immature Gran # (Auto) 0.04 H (0.00-0.02) K/uL Neut # (Auto) 9.53 H (1.4-6.5) K/uL Lymph # (Auto) 2.40 (1.2-3.4) K/uL [place] # (Auto) 1.66 H (0.11-0.59) K/uL Eos # (Auto) 0.06 (0-0.5) K/uL Baso # (Auto) 0.03 (0-0.2) K/uL Sodium 139 (136-145) mmol/L Potassium 3.7 (3.5-5.1) mmol/L Chloride 105 (98-107) mmol/L Carbon Dioxide 28 (21-32) mmol/L Anion Gap 6.0 (3-11) BUN 10 (7-18) mg/dl Creatinine 1.12 (0.6-1.4) mg/dl Est Cr Clr Drug Dosing 102.6 ml/min Est GFR ( Amer) 92.1 Est GFR (Non-Af Amer) 79.5 BUN/Creatinine Ratio 8.5 L (10-20) Glucose 107 H (70-99) mg/dl POC Glucose (70-99) Lactate 1.9 (0.4-2.0) mmol/L Calcium 7.9 L (8.5-10.1) mg/dl Ionized Calcium (1.12-1.32) mmol/L Phosphorus 2.0 L D (2.5-4.9) mg/dl Magnesium 2.3 (1.8-2.4) mg/dl Total Bilirubin 1.5 H D (0.2-1) mg/dl Direct Bilirubin (0-0.2) mg/dl AST 131 H (15-37) U/L ALT 48 (12-78) U/L Alkaline Phosphatase 118 H (45-117) U/L Total Creatine Kinase (39-308) U/L Total Protein 7.7 (6.4-8.2) gm/dl Albumin 3.6 (3.4-5.0) gm/dl Hep Bs Antigen (Neg) Hepatitis C Antibody (Neg) 04/12/19 04/12/19 04/12/19 Range/Units 23:26 14:25 11:34 WBC (4.8-10.8) K/uL RBC (4.7-6.1) M/uL Hgb (14.0-18.0) g/dL Hct (42-52) % MCV (80-100) fL MCH (25-34) pg MCHC (32-36) g/dL RDW Std Deviation (36.4-46.3) fL RDW Coeff of Galo (11.5-14.5) % Plt Count (130-400) K/uL MPV (7.4-10.4) fL Immature Gran % (Auto) % Neut % (Auto) % Lymph % (Auto) % [place] % (Auto) % Eos % (Auto) % Baso % (Auto) % Immature Gran # (Auto) (0.00-0.02) K/uL Neut # (Auto) (1.4-6.5) K/uL Lymph # (Auto) (1.2-3.4) K/uL [place] # (Auto) (0.11-0.59) K/uL Eos # (Auto) (0-0.5) K/uL Baso # (Auto) (0-0.2) K/uL Sodium 141 (136-145) mmol/L Potassium 3.8 (3.5-5.1) mmol/L Chloride 110 H (98-107) mmol/L Carbon Dioxide 25 (21-32) mmol/L Anion Gap 6.0 (3-11) BUN 11 (7-18) mg/dl Creatinine 1.05 (0.6-1.4) mg/dl Est Cr Clr Drug Dosing 109.4 ml/min Est GFR ( Amer) 99.6 Est GFR (Non-Af Amer) 85.9 BUN/Creatinine Ratio 10.3 (10-20) Glucose 99 (70-99) mg/dl POC Glucose 106 H 86 (70-99) Lactate (0.4-2.0) mmol/L Calcium 8.0 L (8.5-10.1) mg/dl Ionized Calcium (1.12-1.32) mmol/L Phosphorus (2.5-4.9) mg/dl Magnesium (1.8-2.4) mg/dl Total Bilirubin (0.2-1) mg/dl Direct Bilirubin (0-0.2) mg/dl AST (15-37) U/L ALT (12-78) U/L Alkaline Phosphatase (45-117) U/L Total Creatine Kinase 3764 H (39-308) U/L Total Protein (6.4-8.2) gm/dl Albumin (3.4-5.0) gm/dl Hep Bs Antigen (Neg) Hepatitis C Antibody (Neg) 04/12/19 Range/Units 09:09 WBC (4.8-10.8) K/uL RBC (4.7-6.1) M/uL Hgb (14.0-18.0) g/dL Hct (42-52) % MCV (80-100) fL MCH (25-34) pg MCHC (32-36) g/dL RDW Std Deviation (36.4-46.3) fL RDW Coeff of Galo (11.5-14.5) % Plt Count (130-400) K/uL MPV (7.4-10.4) fL Immature Gran % (Auto) % Neut % (Auto) % Lymph % (Auto) % [place] % (Auto) % Eos % (Auto) % Baso % (Auto) % Immature Gran # (Auto) (0.00-0.02) K/uL Neut # (Auto) (1.4-6.5) K/uL Lymph # (Auto) (1.2-3.4) K/uL [place] # (Auto) (0.11-0.59) K/uL Eos # (Auto) (0-0.5) K/uL Baso # (Auto) (0-0.2) K/uL Sodium (136-145) mmol/L Potassium (3.5-5.1) mmol/L Chloride (98-107) mmol/L Carbon Dioxide (21-32) mmol/L Anion Gap (3-11) BUN (7-18) mg/dl Creatinine (0.6-1.4) mg/dl Est Cr Clr Drug Dosing ml/min Est GFR ( Amer) Est GFR (Non-Af Amer) BUN/Creatinine Ratio (10-20) Glucose (70-99) mg/dl POC Glucose (70-99) Lactate (0.4-2.0) mmol/L Calcium (8.5-10.1) mg/dl Ionized Calcium (1.12-1.32) mmol/L Phosphorus (2.5-4.9) mg/dl Magnesium (1.8-2.4) mg/dl Total Bilirubin (0.2-1) mg/dl Direct Bilirubin (0-0.2) mg/dl AST (15-37) U/L ALT (12-78) U/L Alkaline Phosphatase (45-117) U/L Total Creatine Kinase (39-308) U/L Total Protein (6.4-8.2) gm/dl Albumin (3.4-5.0) gm/dl Hep Bs Antigen Neg (Neg) Hepatitis C Antibody Neg (Neg) PG Care Time/CCT Total # of Minutes Spent Total Time Spent with Patient: Total time spent is greater than 50% in coordination of care (as documented) at patient's floor/unit and/or counseling patient:
--- NOTE | 2019-04-13 12:15 | Hospitalist Progress Note ---
Date of Service April 13, 2019 Assessment & Plan (1) Drug overdose, intentional: Patient presented with acute metabolic encephalopathy secondary to taking ~20-25 Mollys which he believes were MDMA possibly mixed with methamphetamine vs. cocaine. Intubated upon admission for airway protection given severe agitation, hypertensive urgency, and tachycardia. - Extubated on 04/12. - Still tachycardic, but otherwise improving. Now alert and oriented x 3. Some anxiety vs. possible paranoia. (2) Alcohol abuse: Drinks about 1 bottle (~750 mL) of [place] per day. Not - Phenobarbital taper per ICU team - [facility] protocol (3) Rhabdomyolysis: CPK elevated at 3045 and increased to 3750 later on admission. Likely secondary to drug use and severe agitation. - Continue IV fluids - Follow CPK (4) Hepatitis: AST/ALT were 20/36 on admission. - Up to 131/48 on 04/13 with Tbili up to 1.5. Likely some amount of hepatic injury from ingestion. - Monitor (5) Tachycardia: Likely secondary to methamphetamine use as well as likely alcohol withdrawal. - Avoid beta-blockers - Treating with phenobarbital for alcohol withdrawal (6) Respiratory failure: Secondary to drug intoxication and alcohol withdrawal, was intubated. Extubated on 04/12. - Continue supplemental O2 to keep pulse ox greater than 90% (7) HTN (hypertension): Has a history of borderline hypertension but is not on any medication. Here severely hypertensive likely secondary to drug use and withdrawal as above - Monitor (8) History of gonorrhea: Reportedly with history of gonorrhea - unclear if has been treated. - Studies pending here (9) Leukocytosis: Leukocytosis of 14 on admission is now improved down to 11 - likely stress response. - No evidence of infection: - CT of the head negative, CT of abdomen pelvis negative - Chest x-ray negative for pneumonia - Urinalysis without evidence of infection - Follow CBC (10) DVT prophylaxis: SCDs Pepcid twice daily Lovenox SQ Subjective Notes some shortness of breath with exertion and dizziness. Review of Systems Review of Systems: All systems reviewed & are unremarkable except as noted in HPI & below Physical Exam Constitutional: WD/WN, vitals as above Eyes: + anicteric sclerae, PERRL and reactive pupils ENMT: external ear and nose normal, oropharynx normal Neck: trachea midline, no thyromegaly Respiratory: normal respiratory effort, lungs clear to auscultation Cardiovascular: Rate/Rhythm: regular rhythm and + tachycardic Heart Sounds: no murmur Extremities: no edema Gastrointestinal (Abdomen): normal bowel sounds, soft, nontender, no hepatosplenomegaly Musculoskeletal: Extremities: extremities normal to inspection; no cyanosis and no clubbing Skin: no rashes, warm and dry Neurologic: moves all extremities and awake; no focal motor deficits and not confused Speech / Cognition: + abnormal speech (low volume) Psychiatric: Orientation: alert, oriented to person (But claims to only know his first name, claims to forget his birthdate), oriented to place and oriented to time Eye Contact: + fair eye contact Results & Data Vital Signs (Past 12 Hours) Vital Signs Pulse Resp BP Pulse Ox 04/13/19 10:07 89 24 172/96 H 94 04/13/19 09:08 104 H 21 168/111 H 95 04/13/19 08:06 121 H 19 167/98 H 92 04/13/19 07:00 128 H 36 H 94 04/13/19 04:01 87 24 181/100 H 93 04/13/19 04:00 119 H 22 95 04/13/19 03:46 124 H 26 H 162/93 H 94 04/13/19 03:03 31 H 04/13/19 02:11 95 H 28 H 149/86 H 95 04/13/19 02:07 87 26 H 04/13/19 01:01 104 H 27 H 157/98 H 96 04/13/19 01:00 98 H 26 H 95 PG Care Time/CCT Total # of Minutes Spent Total Time Spent with Patient: Total time spent is greater than 50% in coordination of care (as documented) at patient's floor/unit and/or counseling patient: (1) Respiratory failure Chronicity: acute Respiratory failure complication: unspecified whether with hypoxia or hypercapnia Qualified Code(s): J96.00 - Acute respiratory failure, unspecified whether with hypoxia or hypercapnia (2) HTN (hypertension) Hypertension type: essential hypertension Qualified Code(s): I10 - Essential (primary) hypertension
[2019-04-13] MEDS ORDERED: PHENobarbital 32.4 MG TAB PO SCH (21:00)
--- NOTE | 2019-04-13 23:51 | Progress Note ---
Date of Service April 13, 2019 Received a text page that the patient had left AMA roughly around 10 PM this evening. I talked with the patient's nurse for further details. Reportedly he had removed his IV earlier this evening so it was replaced. Patient was then noted to be mildly tachycardic on the monitor so the nurse went into check on him and found him conversing in the dark with his girlfriend. The next recheck the patient had left the room and took the monitoring and evaluation advisor with him. Security was notified and they in turn notified the police. Personally, I do not believe I have ever met this patient. - Placed order for AMA into the chart to help with the administrative discharge process. - Discussed case with Dr. Jones who requested confirmation that the police were notified. Per security, they have already been to the hospital to investigate. Skyler Man, PGY3 Overnight call Results & Data Vital Signs (Past 12 Hours) Vital Signs Temp Pulse Pulse Resp BP Pulse Ox 04/13/19 19:23 36.9 C 127 H 20 137/81 97 04/13/19 15:28 36.9 C 110 H 18 129/79 96 04/13/19 13:37 107 H 04/13/19 12:46 37.3 C 97 H 18 156/95 H 96
[2019-04-14 11:29] LABS: Chlamydia Trach RNA NOT DETECTED (NOT DETECTED); GC (Neis gonorrhoeae) RNA NOT DETECTED (NOT DETECTED)
--- NOTE | 2019-04-15 09:48 | Discharge Summary ---
Date of Service April 13, 2019 Admission HPI Per Admitting Provider Patient is currently intubated. Unable to obtain medical records at this time. Patient is a young -Honduran male who is currently intubated. It appears patient does not have significant past medical history except for Gonorrhea. Patient appears to have some interaction with law enforcement and was intoxicated. EMS was called as he was agitatd, placed on versed and sent to the ER. He became more agitated and began showing signs of respiratory distress whcih caused him to be sedated and intubated. Admision was then called. Principal Diagnosis Drug ingestion Discharge Exam Constitutional WD/WN, vitals as above Eyes + anicteric sclerae, PERRL and reactive pupils ENMT external ear and nose normal, oropharynx normal Neck trachea midline, no thyromegaly Respiratory normal respiratory effort, lungs clear to auscultation Cardiovascular Rate/Rhythm: regular rhythm and + tachycardic Heart Sounds: no murmur Extremities: no edema Gastrointestinal (Abdomen) normal bowel sounds, soft, nontender, no hepatosplenomegaly Musculoskeletal Extremities: extremities normal to inspection; no cyanosis and no clubbing Skin no rashes, warm and dry Neurologic moves all extremities and awake; no focal motor deficits and not confused Speech / Cognition: + abnormal speech (low volume) Psychiatric Orientation: alert, oriented to person (But claims to only know his first name, claims to forget his birthdate), oriented to place and oriented to time Eye Contact: + fair eye contact Discharge Data Allergies Allergy/AdvReac Type Severity Reaction Status Date / Time Penicillins Allergy Unknown Verified 04/11/19 18:38 tomato Allergy Hives Verified 04/13/19 12:02 Consultations 04/11/19 20:35 Consult Physician Stat 04/11/19 21:29 ED Decision to Admit Stat 04/11/19 21:38 Consult Case Management - Discharge Planning Routine Ordered Studies 04/11/19 19:23 CT abd pelvis IV con only Stat 04/11/19 19:32 CT head/brain wo con Stat Hospital Course (1) Drug overdose, intentional: Patient presented with acute metabolic encephalopathy secondary to taking ~20-25 Mollys which he believes were MDMA possibly mixed with methamphetamine vs. cocaine. Intubated upon admission for airway protection given severe agitation, hypertensive urgency, and tachycardia. - Extubated on 04/12. - Still tachycardic, but otherwise improving. Now alert and oriented x 3. Some anxiety vs. possible paranoia. - Per notes, he left without the nursing staff noticing the evening of 04/13. Appropriate agencies were notified. (2) Alcohol abuse: Drinks about 1 bottle (~750 mL) of [place] per day. Not - Phenobarbital taper per ICU team - [facility] protocol (3) Rhabdomyolysis: CPK elevated at 3045 and increased to 3750 later on admission. Likely secondary to drug use and severe agitation. - Continue IV fluids - Follow CPK (4) Hepatitis: AST/ALT were 20/36 on admission. - Up to 131/48 on 04/13 with Tbili up to 1.5. Likely some amount of hepatic injury from ingestion. - Monitor (5) Tachycardia: Likely secondary to methamphetamine use as well as likely alcohol withdrawal. - Avoid beta-blockers - Treating with phenobarbital for alcohol withdrawal (6) Respiratory failure: Secondary to drug intoxication and alcohol withdrawal, was intubated. Extubated on 04/12. - Continue supplemental O2 to keep pulse ox greater than 90% (7) HTN (hypertension): Has a history of borderline hypertension but is not on any medication. Here severely hypertensive likely secondary to drug use and withdrawal as above - Monitor (8) History of gonorrhea: Reportedly with history of gonorrhea - unclear if has been treated. - Studies pending here (9) Leukocytosis: Leukocytosis of 14 on admission is now improved down to 11 - likely stress response. - No evidence of infection: - CT of the head negative, CT of abdomen pelvis negative - Chest x-ray negative for pneumonia - Urinalysis without evidence of infection - Follow CBC (10) DVT prophylaxis: SCDs Pepcid twice daily Lovenox SQ Total Time Total Time Spent Total Time Spent (In Minutes): 35 Discharge Plan Discharge Items Patient Disposition: Against Medical Advice Reason For Visit: ACUTE INTOXICATION,INTUBATED Follow-up/Referrals: PCPKEVIN [Primary Care Provider] - Addtl Provider Instructions: Prescriptions: No Action Unobtainable RF: 0 Stand-Alone Forms: [employer] Discharge Orders: Left Against Medical Advice (Routine); Ordered 04/13/19 Ordered By: Deejay Man Admission Data Admit Date/Time: 04/11/19 21:42 Attending Provider: Fabián Bhardwaj Admit Provider: Ganesh Payan Primary Care Provider: PCP,NO Other Providers: Fabián Bhardwaj ; Aguila Madrigal ; Jose Agustin Service: Medical Other DC Date/Time DO NOT enter until pt leaves facility: 04/13/19 22:00
[2019-04-18 15:37] LABS: 7-Aminoclonaz, Confirm NEGATIVE NG/ML (CUTOFF=25); Amobarbital, Urine Conf NEGATIVE NG/ML (CUTOFF=100); Amphetamine Urine, Confirm 16600 NG/ML (CUTOFF=250); Butalbital, Urine NEGATIVE NG/ML (CUTOFF=100); Hydro-Alp Ur, GC/MS NEGATIVE NG/ML (CUTOFF=25); Hydroxyethylflurazepam, Conf NEGATIVE NG/ML (CUTOFF=50); Hydroxytriazolam NEGATIVE NG/ML (CUTOFF=50); Lorazepam, Ur GC/MS 1130 NG/ML (CUTOFF=50); Nordiazepam, Confirm NEGATIVE NG/ML (CUTOFF=50); Oxazepam Ur, GC/MS NEGATIVE NG/ML (CUTOFF=50); Pentobarbital, Urine Conf NEGATIVE NG/ML (CUTOFF=100); Phenobarbital, Urine 1528 NG/ML (CUTOFF=100); Secobarbital, Urine Conf NEGATIVE NG/ML (CUTOFF=100); Temazepam, Confirm NEGATIVE NG/ML (CUTOFF=50)
== END 2019-04-13 22:00 | disposition left against medical advice (07) | DRG 917 ==
LOC: ED 18:23 → 1E 21:42 → SUATTDRO 21:42 → EDBD 21:42 → 1E 22:45 → 2N 04-13 12:45
DX: Y92.89 Other specified places as the place of occurrence of the external cause; G92 Toxic encephalopathy; Z88.0 Allergy status to penicillin; M62.82 Rhabdomyolysis; T40.5X2A Poisoning by cocaine, intentional self-harm, initial encounter; A54.9 Gonococcal infection, unspecified; K75.9 Inflammatory liver disease, unspecified; J96.00 Acute respiratory failure, unspecified whether with hypoxia or hypercapnia; F10.231 Alcohol dependence with withdrawal delirium; F15.90 Other stimulant use, unspecified, uncomplicated; T43.622A Poisoning by amphetamines, intentional self-harm, initial encounter; I10 Essential (primary) hypertension; R00.0 Tachycardia, unspecified